=== PATIENT | female | born 1950 | race Caucasian/White ===

== ENCOUNTER 2022-06-24 07:17 | Outpatient (REF) | payer MEDICARE, SELFPAY ==
--- NOTE | ~2022-06-24 | MR_ITS ---
EXAMINATION: MR ABDOMEN WITHOUT CONTRAST CLINICAL INFORMATION: Follow up pancreatic lesions and dilated common bile duct. COMPARISON: None available. TECHNIQUE: MR abdomen is performed without gadolinium contrast. MRCP sequences were also performed. FINDINGS: LUNG BASES: The visualized lung bases are unremarkable. LIVER, GALLBLADDER, AND BILIARY TREE: The liver is normal in size, shape and signal. There is a small cyst high in the dome of the liver measuring 7 mm. No other focal liver lesion. No intrahepatic biliary duct dilatation. The common bile duct is slightly dilated measuring 1 cm. No common bile duct stone is seen. Gallbladder is not seen and has presumably been removed. PANCREAS: The pancreas is normal appearing. No focal lesion. The main pancreatic duct is normal. SPLEEN: Unremarkable. ADRENAL GLANDS: Unremarkable. KIDNEYS AND URETERS: The kidneys are normal in size and shape. No hydronephrosis. No perinephric stranding. Small bilateral renal cysts. No imaging followup recommended. GASTROINTESTINAL TRACT: No bowel obstruction. No ascites or fluid collection. ABDOMINAL WALL: No significant hernia is appreciated. LYMPH NODES: No lymphadenopathy. VASCULAR: Unremarkable. OSSEOUS STRUCTURES: Marrow signal normal. MR/MR abdomen wo con IMPRESSION: Mild dilatation of the common bile duct measuring 1 cm. No common bile duct stone seen. Gallbladder not seen and has presumably been removed. Small liver cyst. Normal-appearing pancreas.
== END 2022-06-24 07:18 | disposition home or self-care (01) ==
LOC: HO.MRI 07:17
PROVIDERS: PCP Internal Medicine; Visit Provider Internal Medicine
DX: K86.9 Disease of pancreas, unspecified (principal); R93.2 Abnormal findings on diagnostic imaging of liver and biliary tract
CPT/HCPCS: 74181

== ENCOUNTER 2022-10-25 08:59 | Outpatient (REF) | payer MEDICARE, SELFPAY ==
--- NOTE | ~2022-10-25 | MR_ITS ---
EXAMINATION: MR ABDOMEN WITHOUT AND WITH CONTRAST CLINICAL INFORMATION: Congenital malformation of pancreas/pancreatic duct COMPARISON: Previous MRI of the abdomen June 2022 TECHNIQUE: MR abdomen was performed without and with use of 4.5 mL intravenous Gadavist gadolinium contrast. Postcontrast images are performed in multiphase dynamic sequences. Imaging was performed in 3 planes. MRCP sequences were also performed. FINDINGS: LUNG BASES: The visualized lung bases are unremarkable. LIVER, GALLBLADDER, AND BILIARY TREE: The liver is normal in size, smooth in contour, and normal in signal. There is a 5 mm cyst high in the dome of the right lobe of the liver. No other focal liver lesion. No intrahepatic biliary duct dilatation. The common bile duct is slightly dilated measuring 1 cm. This is dilated to the head down to the head of the pancreas and tapers smoothly. No filling defect is seen. The gallbladder is not seen and has presumably been removed. PANCREAS: The pancreas is size and signal. The pancreas enhances normally. No there may be a tiny cyst in the neck of the pancreas measuring 2 mm for example axial image 40 post contrast and axial T2 image 19 series 5. The main pancreatic duct is normal and does not appear dilated. SPLEEN: Normal. ADRENAL GLANDS: Normal. KIDNEYS AND URETERS: The kidneys are normal in size, shape, and enhance symmetrically. No hydronephrosis. No perinephric stranding. Bilateral renal cysts. No imaging follow-up recommended. GASTROINTESTINAL TRACT: There is question of wall thickening and enhancement of the cecum. This is not completely imaged. Clinical correlation recommended. This could be better evaluated with CT of the abdomen and pelvis if clinically indicated. No ascites or fluid collection. ABDOMINAL WALL: No significant hernia is appreciated. LYMPH NODES: No lymphadenopathy. VASCULAR: Unremarkable. OSSEOUS STRUCTURES: Marrow signal normal. Degenerative changes of the spine. MR/MR abdomen wo/w con IMPRESSION: Normal appearing main pancreatic duct. Question small 2 mm cyst in the neck of the pancreas. Pancreas is otherwise normal. Stable mild dilatation of the common bile duct measuring 1 cm. No common bile duct stone seen. Gallbladder not seen and has presumably been removed. Question wall thickening and enhancement of the cecum. This is only partially visualized. Clinical correlation recommended. This could be better evaluated with CT of the abdomen and pelvis if clinically indicated. Findings will be communicated by the [place] work flow bus analyst..
[2022-10-25] MEDS: gadobutroL 7.5 ML VIAL IVPUSH (09:56)
== END 2022-10-25 09:00 | disposition home or self-care (01) ==
LOC: HO.MRI 08:59
PROVIDERS: PCP Internal Medicine; Visit Provider Internal Medicine Gastroenterology
DX: Q45.3 Other congenital malformations of pancreas and pancreatic duct (principal)
CPT/HCPCS: 74183; A9585

== ENCOUNTER 2022-10-29 07:55 | Day surgery (SDC) | payer MEDICARE, SELFPAY ==
--- NOTE | 2022-10-29 07:44 | HO.ANESPROP2 ---
HPI - Anesthesia Eval Consult details Narrative: egd,colonoscopy [facility] Past Medical History Medical History Atrial enlargement, left Breast tumor First-degree atrioventricular block Heart murmur Left ankle pain Left foot pain Pain syndrome, chronic Reflex sympathetic dystrophy Seasonal allergies Squamous cell carcinoma, face Family History Family history of problems with anesthesia: No Surgical History Surgical History H/O hemorrhoidectomy History of ERCP Hx of cholecystectomy Previous back surgery Previous section History of Problems with Anesthesia: No Social History Social History Patient Tobacco Use Status: Never used Tobacco Use of substances other than those prescribed or required for medical reasons: Yes Are you DNR?: No Advance Directives: No Advance Directives Information Provided: Yes Recently lost weight without trying: No Nutrition Risks: No Nutritional Risk Patient : No : No Poor oral hygiene: No Meds Allergies Allergy/AdvReac Type Severity Reaction Status Date / Time Beta-Blockers Allergy Unknown Verified 10/28/22 06:25 (Beta-Adrenergic Bloc Penicillins Allergy Unknown Verified 10/28/22 06:25 Home Medications Medication Instructions Recorded Confirmed Last Taken Type alirocumab 75 mg/mL subcutaneous 75 mg subcut Q2W 10/28/22 10/28/22 Unknown History pen injector (Praluent Pen) cetirizine 10 mg capsule (Zyrtec) mg 10/28/22 Unknown History dicyclomine 10 mg capsule 10 mg PO BID 10/28/22 10/28/22 Unknown History esomeprazole magnesium 40 mg 40 mg PO DAILY 10/28/22 10/28/22 Unknown History capsule,delayed release (Nexium) nortriptyline 50 mg capsule PO 10/28/22 Unknown History potassium chloride 20 mEq 20 meq PO DAILY 10/28/22 10/28/22 Unknown History tablet,extended release topiramate 200 mg tablet PO 10/28/22 Unknown History ubidecarenone-omega 3-vit E 50 cap PO 10/28/22 Unknown History mg-300 (180-120)mg-30 unit capsule Exam Exam Date and Time: October 29, 2022 0744 Airway Mallampati Class: II TM Dist: >3cm Neck ROM: Limited Heart: rrr Lungs: cta Assessment and Plan Assessment Anesthesia Assessment: Anesthesia Plan Discussed and Chart Reviewed Final Anesthetic Review Family History of Problems with Anesthesia: No History of Problems with Anesthesia: No NPO: Yes ASA Class: III Final Preanesthetic Review: No Changes in Pt Med Stat, Meds/Allgs Chart Reviewed, Consent Obtained/Reviewed and Anes Risks/Benef Reviewed Patient Risk: Intermediate Procedure Risk: Intermediate Anesthetic Plan Anesthetic Plan: MAC: and Agree w/ Assess. and Plan Disposition: Standard PACU
[2022-10-29 08:16] VITALS: BP 174/90; PULSE 101; RESP 17; TEMP 36.4; O2SAT 100
--- NOTE | 2022-10-29 09:23 | MHC.SHP ---
Pre-Procedural Eval Section A Date of Service: 10/29/22 Section B Chief Complaint: Constipation, unspecified,Unspecified abdominal Details of Present Illness: see H&P no changes Relevant Family History (Specify if Yes): No Relevant Social History: None Present Medications: see Short Stay Collaborative assessment Medical History: No relevant PMH History of Previous Operations: No relevant previous surgery Allergies: Allergies Allergy/AdvReac Type Severity Reaction Status Date / Time Beta-Blockers Allergy Unknown Verified 10/28/22 06:25 (Beta-Adrenergic Bloc Penicillins Allergy Unknown Verified 10/28/22 06:25 Review of Systems Sugical H&P ROS: Negative: Constitution, Cardiovascular, Respiratory, Neurological, Psychiatric, Hem-Onc, Allergic/Immunologic, Gastrointestinal, Genitourinary, Musculoskeletal, Integumentary, Endocrine and Eyes/Ears/Nose/Throat Exam Surgical H&P Exam: Normal: HEENT, Normal: Heart, Normal: Lungs, Normal: Extremities, Normal: Abdomen, Normal: Skin and Normal: Neurological Plan Diagnosis/Plan: Unchanged I have reviewed the history and physical and performed a pertinent physical examination on my patient. No changes have occurred unless specified. Time Spent With Patient Time: Total time managing care of this patient today ____ minutes.
[2022-10-29 09:24] VITALS: BMI 17.3
--- NOTE | 2022-10-29 11:00 | P.BOP_ITS ---
Brief Operative Note Date of Service: 10/29/22 Pre-op diagnosis: constipation abd pain Post-op diagnosis: same Procedure: egd colonoscopy Surgeon: Franco Michael Was an S[employer] Loader used for this Procedure?: No Estimated blood loss (mL): 5 Pathology: other Condition: stable Disposition: PACU
[2022-10-29 11:05] VITALS: BP 121/70; PULSE 69; RESP 16; TEMP 36.1; O2SAT 100
[2022-10-29 11:19] VITALS: BP 140/76; PULSE 67; RESP 16; TEMP 36.1; O2SAT 100
--- NOTE | 2022-10-29 12:29 | OP_ITS ---
DATE OF SERVICE: 10/29/2022 SURGEON: Franco Michael MD PREOPERATIVE DIAGNOSIS: POSTOPERATIVE DIAGNOSIS: PROCEDURE PERFORMED: Upper endoscopy with biopsy, colonoscopy to the terminal ileum with biopsy, snare polypectomy, and injection of Antonia ink. ESTIMATED BLOOD LOSS: COMPLICATIONS: ANESTHESIA: Monitored anesthesia care. ASSISTANTS: SPECIMENS: DESCRIPTION OF PROCEDURE: A history and physical was performed. The risks and benefits of the procedure were explained to the patient. Informed consent was obtained. The patient was placed in the left lateral decubitus position. The Olympus video gastroscope was introduced into the esophagus, stomach, and duodenum. Examination was performed. The scope was removed. She was repositioned for colonoscopy. A digital rectal exam was performed and was found to be normal. The Olympus pediatric video colonoscope was introduced into the rectum and advanced to the cecum. The cecum was identified by transillumination, palpation, and identification of ileocecal valve. Examination was performed. The scope was removed. She tolerated the procedure well and was returned to the recovery area in stable condition. FINDINGS: Upper endoscopy: 1. Esophagus: The esophagus was normal. The EG junction was slightly irregular. This was biopsied. 2. Stomach: The stomach showed several benign-appearing gastric polyps in the body and fundus measuring less than 5 mm. Two of these were biopsied. Antral biopsies were obtained to rule out H pylori. 3. Duodenum: The bulb and second portion were normal. Biopsies were obtained from the second portion. Colonoscopy: The terminal ileum was normal. Multiple colonic polyp polyps were present and removed using a combination of snare cautery and cauterization. These were located in the right colon, proximal transverse colon at 15 cm, and biopsies were taken from the sigmoid. The second polyp in the right colon was large and flat, measuring approximately 3 x 2 cm traversing a fold and was piecemeal resected and cauterized. The site was marked with Antonia ink for facilitation of followup colonoscopies. The first right colon polyp measured approximately 10 mm, the proximal transverse colon polyp also measured 10 mm to 12 mm, and the polyp in the sigmoid colon measured 10 mm. Retroflexed examination showed some internal hemorrhoids. IMPRESSION: 1. Gastric polyps. 2. Colon polyps. RECOMMENDATION: Follow up the biopsy results. MD JULIOCESAR Moon/TAI / [id number]
== END 2022-10-29 12:06 | disposition home or self-care (01) ==
PROVIDERS: PCP Internal Medicine; Visit Provider Internal Medicine Gastroenterology
PROC: (CPT 45385; principal; 2022-10-29 09:00)
DX: R10.84 Generalized abdominal pain (principal); K58.1 Irritable bowel syndrome with constipation; D12.2 Benign neoplasm of ascending colon; D12.3 Benign neoplasm of transverse colon; D12.7 Benign neoplasm of rectosigmoid junction; K64.8 Other hemorrhoids; K31.9 Disease of stomach and duodenum, unspecified; K31.7 Polyp of stomach and duodenum; G90.522 Complex regional pain syndrome I of left lower limb; I51.7 Cardiomegaly; I44.0 Atrioventricular block, first degree; E78.5 Hyperlipidemia, unspecified; J30.2 Other seasonal allergic rhinitis; Q45.3 Other congenital malformations of pancreas and pancreatic duct; Z88.0 Allergy status to penicillin; Z79.899 Other long term (current) drug therapy; Z88.8 Allergy status to other drugs, medicaments and biological substances; Z98.890 Other specified postprocedural states
CPT/HCPCS: 45385; 45380; 45381; 43239; 88305; 88342; J2250

== ENCOUNTER 2022-11-05 10:32 | Outpatient (REF) | payer MEDICARE, SELFPAY ==
--- NOTE | ~2022-11-05 | XR_ITS ---
EXAMINATION: XR SINUSES CLINICAL INFORMATION: Sinusitis COMPARISON: None available. TECHNIQUE: 4 views of the paranasal sinuses. FINDINGS: Paranasal sinuses appear clear without air-fluid levels or significant mucosal thickening. No fractures are identified. No radiodense foreign bodies. XR/XR sinus min 3V IMPRESSION: No evidence of acute or chronic sinusitis.
== END 2022-11-05 10:33 | disposition home or self-care (01) ==
LOC: HO.XRAY 10:32
PROVIDERS: Visit Provider Otolaryngology
DX: J32.9 Chronic sinusitis, unspecified (principal)
CPT/HCPCS: 70220

== ENCOUNTER 2023-02-18 15:00 | Outpatient (REF) | payer MEDICARE, SELFPAY ==
--- NOTE | ~2023-02-18 | XR_ITS ---
EXAMINATION: XR FINGER, LEFT CLINICAL INFORMATION: Which splinter in finger left. COMPARISON: None available. TECHNIQUE: 3 views of the second finger including AP view of the hand FINDINGS: No radiopaque foreign body detected. No air/gas in soft tissues. No irregularity of the soft tissues. The bone and joints of the second finger/digit are normal. Additional findings: The AP projection of the hand there is a ununited fracture the distal tuft of the distal phalanx of the thumb tear Remaining bones joints and soft tissues unremarkable. XR/XR finger LT min 2V IMPRESSION: 1. No radiopaque foreign body detected. No fracture of the second finger 2. Ununited fracture of the distal tuft of the distal phalanx of the thumb. This may be chronic or subacute unlikely acute.
== END 2023-02-18 15:01 | disposition home or self-care (01) ==
LOC: HO.XRAY 15:00
PROVIDERS: PCP Internal Medicine; Visit Provider Nurse Practitioner Family
DX: S60.451A Superficial foreign body of left index finger, initial encounter (principal)
CPT/HCPCS: 73140

== ENCOUNTER 2023-04-18 08:13 | Day surgery (SDC) | payer MEDICARE, SELFPAY ==
[2023-04-16 10:48] VITALS: BMI 18.0
--- NOTE | 2023-04-17 10:22 | HO.ANESPROP2 ---
Documented by User: Bianca Buckley NP 04/17/23 10:24 HPI - Anesthesia Eval Consult details Narrative: 72yo F for Colonoscopy s/p colo 10/2022 with TIVA (Medically cleared prior) PMFSH Past Medical History Medical History Squamous cell carcinoma, face Left ankle pain Left foot pain Breast tumor Seasonal allergies Heart murmur First-degree atrioventricular block Atrial enlargement, left Pain syndrome, chronic Reflex sympathetic dystrophy Family History Family history of problems with anesthesia: No Surgical History Surgical History (Updated 04/16/23 @ 10:48 by Crystal Blevins RN) Hx of foot surgery Hx of sinus surgery History of esophagogastroduodenoscopy (EGD) Hx of cholecystectomy History of ERCP H/O hemorrhoidectomy Previous back surgery Previous section History of Problems with Anesthesia: No Social History Social History Patient Tobacco Use Status: Never used Tobacco Use of substances other than those prescribed or required for medical reasons: Yes Substance Use Frequency: Daily Are you DNR?: No Advance Directives: No Advance Directives Information Provided: Yes Meds Allergies Allergy/AdvReac Type Severity Reaction Status Date / Time Beta-Blockers Allergy Unknown Verified 04/18/23 08:25 (Beta-Adrenergic Bloc Penicillins Allergy Unknown Verified 04/18/23 08:25 Home Medications Medication Instructions Recorded Confirmed Last Taken Type alirocumab 75 mg/mL subcutaneous 75 mg subcut Q2W 10/28/22 04/16/23 Unknown History pen injector (Praluent Pen) cetirizine 10 mg capsule (Zyrtec) 10 mg PO DAILY 10/28/22 04/18/23 04/18/23 History dicyclomine 10 mg capsule 20 mg PO TID 10/28/22 04/16/23 Unknown History esomeprazole magnesium 40 mg 40 mg PO DAILY 10/28/22 04/18/23 04/18/23 History capsule,delayed release (Nexium) nortriptyline 50 mg capsule 50 mg PO BID 10/28/22 04/16/23 Unknown History potassium chloride 20 mEq 20 meq PO DAILY 10/28/22 04/16/23 Unknown History tablet,extended release topiramate 200 mg tablet 200 mg PO TID 10/28/22 04/18/23 04/18/23 History ubidecarenone-omega 3-vit E 50 1 cap PO DAILY 10/28/22 04/18/23 04/17/23 History mg-300 (180-120)mg-30 unit capsule Exam Height,Weight and Vital Signs: Height 4 ft 10 in Weight 39.009 kg Assessment and Plan Assessment Anesthesia Assessment: Chart Reviewed Final Anesthetic Review Family History of Problems with Anesthesia: No History of Problems with Anesthesia: No Documented by User: Miguel Tesfaye MD 04/18/23 09:12 [facility] Past Medical History Medical History Squamous cell carcinoma, face Left ankle pain Left foot pain Breast tumor Seasonal allergies Heart murmur First-degree atrioventricular block Atrial enlargement, left Pain syndrome, chronic Reflex sympathetic dystrophy Surgical History Surgical History (Updated 04/16/23 @ 10:48 by Crystal Blevins RN) Hx of foot surgery Hx of sinus surgery History of esophagogastroduodenoscopy (EGD) Hx of cholecystectomy History of ERCP H/O hemorrhoidectomy Previous back surgery Previous section Social History Social History Patient Tobacco Use Status: Never used Tobacco Use of substances other than those prescribed or required for medical reasons: Yes Substance Use Frequency: Daily Are you DNR?: No Advance Directives: No Advance Directives Information Provided: Yes Meds Allergies Allergy/AdvReac Type Severity Reaction Status Date / Time Beta-Blockers Allergy Unknown Verified 04/18/23 08:25 (Beta-Adrenergic Bloc Penicillins Allergy Unknown Verified 04/18/23 08:25 Home Medications Medication Instructions Recorded Confirmed Last Taken Type alirocumab 75 mg/mL subcutaneous 75 mg subcut Q2W 10/28/22 04/16/23 Unknown History pen injector (Praluent Pen) cetirizine 10 mg capsule (Zyrtec) 10 mg PO DAILY 10/28/22 04/18/23 04/18/23 History dicyclomine 10 mg capsule 20 mg PO TID 10/28/22 04/16/23 Unknown History esomeprazole magnesium 40 mg 40 mg PO DAILY 10/28/22 04/18/23 04/18/23 History capsule,delayed release (Nexium) nortriptyline 50 mg capsule 50 mg PO BID 10/28/22 04/16/23 Unknown History potassium chloride 20 mEq 20 meq PO DAILY 10/28/22 04/16/23 Unknown History tablet,extended release topiramate 200 mg tablet 200 mg PO TID 10/28/22 04/18/23 04/18/23 History ubidecarenone-omega 3-vit E 50 1 cap PO DAILY 10/28/22 04/18/23 04/17/23 History mg-300 (180-120)mg-30 unit capsule Exam Airway Mallampati Class: II Neck ROM: Full Assessment and Plan Assessment Anesthesia Assessment: Anesthesia Plan Discussed Final Anesthetic Review NPO: Yes ASA Class: II Final Preanesthetic Review: No Changes in Pt Med Stat, Meds/Allgs Chart Reviewed, Consent Obtained/Reviewed and Anes Risks/Benef Reviewed Patient Risk: Low Procedure Risk: Low Anesthetic Plan Anesthetic Plan: TIVA Disposition: Standard PACU
[2023-04-18 08:17] VITALS: BMI 17.3
[2023-04-18] MEDS: Lactated Ringers 1,000 ML 100 ML IVCONT (08:37)
[2023-04-18 08:38] VITALS: BP 169/91; PULSE 101; RESP 16; TEMP 36.3; O2SAT 100
--- NOTE | 2023-04-18 09:01 | MHC.SHP ---
Pre-Procedural Eval Section A - 24 Hr Update-Section A only Date of Service: 04/18/23 Section B - Complete if H&P > 30 days Chief Complaint: Polyp of colon Details of Present Illness: see h&p and addendum Relevant Family History (Specify if Yes): No Relevant Social History: None Present Medications: see Short Stay Collaborative assessment Medical History: No relevant PMH History of Previous Operations: No relevant previous surgery Allergies: Allergies Allergy/AdvReac Type Severity Reaction Status Date / Time Beta-Blockers Allergy Unknown Verified 04/18/23 08:25 (Beta-Adrenergic Bloc Penicillins Allergy Unknown Verified 04/18/23 08:25 Review of Systems Sugical H&P ROS: Negative: Constitution, Cardiovascular, Respiratory, Neurological, Psychiatric, Hem-Onc, Allergic/Immunologic, Gastrointestinal, Genitourinary, Musculoskeletal, Integumentary, Endocrine and Eyes/Ears/Nose/Throat Exam Surgical H&P Exam: Normal: HEENT, Normal: Heart, Normal: Lungs, Normal: Extremities, Normal: Abdomen, Normal: Skin and Normal: Neurological Plan Diagnosis/Plan: Unchanged I have reviewed the history and physical and performed a pertinent physical examination on my patient. No changes have occurred unless specified. Time Spent With Patient Time: Total time managing care of this patient today ____ minutes.
[2023-04-18 10:18] VITALS: BP 122/65; PULSE 94; RESP 16; TEMP 36.1; O2SAT 97
[2023-04-18 10:33] VITALS: BP 146/83; PULSE 88; RESP 16; O2SAT 100
[2023-04-18 10:48] VITALS: BP 143/78; PULSE 85; TEMP 36.2; O2SAT 100
--- NOTE | 2023-04-18 10:55 | OP_ITS ---
DATE OF SERVICE: 04/18/2023 SURGEON: Franco Michael MD INDICATIONS: Colon cancer screening and prior history of large colon polyp requiring piecemeal resection and Antonia ink marking. PREOPERATIVE DIAGNOSIS: POSTOPERATIVE DIAGNOSIS: PROCEDURE PERFORMED: Colonoscopy to the terminal ileum with snare polypectomy and endoscopic clip placement. ESTIMATED BLOOD LOSS: COMPLICATIONS: ANESTHESIA: Monitored anesthesia care. ASSISTANTS: SPECIMENS: DESCRIPTION OF PROCEDURE: History and physical performed. The risks and benefits of the procedure were explained to the patient. Informed consent was obtained. The patient was placed in the left lateral decubitus position. A digital rectal exam was performed and was found to be normal. The Olympus pediatric video colonoscope was introduced into the rectum and advanced to the cecum. The cecum was identified by transillumination, palpation, and identification of ileocecal valve. Examination was performed. The scope was removed. She tolerated the procedure well and was taken to recovery area in stable condition. FINDINGS: The terminal ileum was examined and appeared normal. The visualized colonic mucosa was normal. The quality of prep was good. The previously identified large colon polyp in the right colon, which had been marked with Antonia ink was identified. There was residual polypoid tissue, which was piecemeal resected and cauterized. A single clip was placed to close the defect in the mucosa. The 2nd polyp just above this measuring approximately 10 mm was removed with a snare and recovered via suction. No other polyps were identified. Retroflexed examination showed moderate-sized internal hemorrhoids. IMPRESSION: Colon polyps. RECOMMENDATION: Follow up the biopsy results. MD JULIOCESAR Moon/MODL / [id number]
== END 2023-04-18 11:10 | disposition home or self-care (01) ==
PROVIDERS: PCP Internal Medicine; Visit Provider Internal Medicine Gastroenterology
PROC: 0DJD8ZZ Inspection of Lower Intestinal Tract, Via Natural or Artificial Opening Endoscopic (ICD-10-PCS; CPT 45378; principal; 2023-04-18 09:00)
DX: Z12.11 Encounter for screening for malignant neoplasm of colon (principal); D12.6 Benign neoplasm of colon, unspecified; K64.8 Other hemorrhoids; Z86.010 Personal history of colon polyps
CPT/HCPCS: 45385; 88305; J2704

== ENCOUNTER 2023-07-01 12:37 | Outpatient (REF) | payer MEDICARE, SELFPAY ==
[2023-07-01 14:08] LABS: Blood Urea Nitrogen 13 mg/dL (9-16); Estimated Glomerular Filt Rate 52
== END 2023-07-01 12:38 | disposition home or self-care (01) ==
LOC: HO.LAB 12:37
PROVIDERS: PCP Internal Medicine; Visit Provider Internal Medicine Gastroenterology
DX: R10.84 Generalized abdominal pain (principal)
CPT/HCPCS: 36415; 82565; 84520

== ENCOUNTER 2023-07-07 13:27 | Outpatient (REF) | payer MEDICARE, SELFPAY ==
--- NOTE | ~2023-07-07 | CT_ITS ---
EXAMINATION: CT ABDOMEN AND PELVIS WITH CONTRAST CLINICAL INFORMATION: Abdominal pain (attention to pancreas) COMPARISON: MRI scan of the abdomen dated 10/25/2022 . Images from the MRI scan dated 06/24/2022 and do not display appropriately and cannot be compared. TECHNIQUE: Multidetector CT volumetric acquisition of the abdomen and pelvis was performed after the administration of 675 mL of by mouth contrast (patient unable to complete contrast) and 85 mL of intravenous Omnipaque 350. The data set was reformatted in the sagittal and coronal planes and reviewed on an independent workstation. This CT examination was performed using dose optimization techniques as appropriate, variously including the following: *Automated exposure control *Adjustment of mA and/or kV according to patient size (this includes techniques or standardized protocols for targeted exams where dose is matched to indication/reason for exam; i.e. extremities or head) *Use of iterative reconstruction technique DLP: 170.3 mGy-cm. FINDINGS: LOWER CHEST: Included lung bases unremarkable. LIVER, GALLBLADDER, BILIARY TREE: Liver normal size and diffusely lower in attenuation compared to the spleen, consistent with hepatic steatosis.. There is a 0.8 cm cyst in the central segment 7 (series 4, image 52). No suspicious focal cystic or solid mass. Hepatic and portal veins patent. Gallbladder is surgically absent. There is dilatation of the intra and extrahepatic bile ducts with the common bile duct measuring up to 1 cm in diameter, unchanged from prior exam. PANCREAS: There is a 0.6 cm low-attenuation mass in the pancreatic neck (series 4, image 167), previously measuring 0.4 cm (10/25/2022). No additional pancreatic mass No ductal dilatation or peripancreatic stranding/edema. SPLEEN: Normal size and appearance. Splenic vein patent. ADRENAL GLANDS AND KIDNEYS: Right adrenal gland normal. 0.7 cm left adrenal nodule again seen, unchanged, consistent with a benign adenoma. Kidneys bilaterally symmetric in size and function. There are several scattered subcentimeter sized low-attenuation masses in the kidneys bilaterally, too small to characterize, but similar to the prior MRI scan and most consistent with scattered cysts, largest of which is in the mid right kidney, measuring 0.8 cm. No imaging follow-up is warranted. No suspicious focal mass, hydronephrosis, nephrolithiasis or perinephric stranding. URETERS AND BLADDER: Ureters decompressed and within normal limits. Bladder partially distended and within normal limits. PELVIC ORGANS: Unremarkable. GASTROINTESTINAL TRACT: The orally ingested contrast is seen extending from the stomach down into the cecum. Small bowel loops appear decompressed and unremarkable. In the proximal and distal transverse colon, there are decompressed segments, likely related to muscle spasm. However, the proximal decompressed segment near the hepatic flexure shows equivocal associated circumferential wall thickening and enhancement, raising the suspicion of possible underlying neoplasm. Appendix in right lower quadrant normal. LYMPHOVASCULAR STRUCTURES: Abdominal aorta normal in caliber. No periaortic collections. No abdominal or pelvic adenopathy or free fluid collection. BONES: There is grade 1 anterolisthesis of L3 on L4, likely related to degenerative ligamentous laxity. There is associated moderate disc space narrowing at L3-L4. There is also moderate disc space narrowing at L4-L5 with diffuse posterior disc bulge projecting into the spinal canal and neural foramina. There is severe degenerative disc disease at the lumbosacral junction with small posterior disc osteophyte complex noted. Mild facet arthropathy is seen in the mid and lower lumbar spine. Mild vertebral spondylosis seen in the lower thoracic spine. CT/CT abdomen pelvis w IV con IMPRESSION: * No acute intra-abdominal or pelvic findings seen. * Equivocal circumferential wall thickening and enhancement seen in the proximal transverse colon near the hepatic flexure. Findings may be related to focal colonic spasm, though subtle underlying neoplasm cannot be excluded. Further assessment with barium enema or colonoscopy is recommended. * Hepatic steatosis. * Stable intra and extrahepatic biliary dilatation, likely related to the patient's postcholecystectomy state. * Small 0.6 cm low-attenuation mass in the pancreatic neck, minimally increased in size from prior exam. Finding may represent a pancreatic cyst or cystic neoplasm, such as a intraductal papillary mucinous neoplasm (IPMN). Given the slight interval increase in size, close clinical correlation is requested to assess whether further evaluation with endoscopic ultrasound would be clinically appropriate versus continued imaging with MRI scanning with and without contrast/MRCP in 6-12 months. * Stable small left adrenal adenoma. * Scattered bilateral renal masses, too small to characterize, but similar to prior MRI scan, most consistent with small cysts. No further imaging follow-up is recommended. * Multilevel degenerative changes in the spine.
[2023-07-07] MEDS: Barium Sulfate Oral (Vanilla) 450 ML ORAL.SUSP 675 ML PO (15:40)
[2023-07-07] MEDS: iohexoL 350 MG/ML 100 ML INFUS..BTL 85 ML IV (15:40)
== END 2023-07-07 13:28 | disposition home or self-care (01) ==
LOC: HO.CT 13:27
PROVIDERS: PCP Internal Medicine; Visit Provider Internal Medicine Gastroenterology
DX: R10.84 Generalized abdominal pain (principal)
CPT/HCPCS: 74177; Q9967

== ENCOUNTER 2023-07-29 10:57 | Outpatient (REF) | payer MEDICARE, SELFPAY ==
[2023-07-29 13:58] LABS: Leukocytes Stool Qualitative NEGATIVE (NEGATIVE)
[2023-07-29 14:35] LABS: Adenovirus F 40/41 Not Detected (Not Detect.); Astrovirus Not Detected (Not Detect.); Campylobacter Not Detected (Not Detect.); Cryptosporidium Not Detected (Not Detect.); Cyclospora cayetanensis Not Detected (Not Detect.); E. coli EAEC Not Detected (Not Detect.); E. coli EPEC Not Detected (Not Detect.); E. coli ETEC Not Detected (Not Detect.); E. coli STEC Not Detected (Not Detect.); Entamoeba histolytica Not Detected (Not Detect.); Giardia lamblia Not Detected (Not Detect.); Plesiomonas shigelloides Not Detected (Not Detect.); Rotavirus A Not Detected (Not Detect.); Salmonella Not Detected (Not Detect.); Sapovirus Not Detected (Not Detect.); Shigella sp./EIEC Not Detected (Not Detect.); Vibrio Not Detected (Not Detect.); Vibrio Cholerae Not Detected (Not Detect.); Yersinia enterocolitica Not Detected (Not Detect.)
[2023-07-31 07:52] LABS: Norovirus Stool PCR NOT DETECTED
== END 2023-07-29 10:58 | disposition home or self-care (01) ==
LOC: HO.LNP 10:57
PROVIDERS: Visit Provider Internal Medicine Gastroenterology
DX: R19.7 Diarrhea, unspecified (principal)
CPT/HCPCS: 87177; 87209; 87329; 87507; 89055

== ENCOUNTER 2023-08-25 11:47 | Outpatient (REF) | payer MEDICARE, SELFPAY | END 2023-08-25 11:48 | disposition home or self-care (01) | LOC: HO.LNP 11:47 | PROVIDERS: Visit Provider Internal Medicine Gastroenterology | DX: Z13.89 Encounter for screening for other disorder (principal) | CPT/HCPCS: 87177; 87209 ==

== ENCOUNTER 2023-08-26 11:46 | Outpatient (REF) | payer MEDICARE, SELFPAY | END 2023-08-26 11:47 | disposition home or self-care (01) | LOC: HO.LNP 11:46 | PROVIDERS: Visit Provider Internal Medicine Gastroenterology | DX: Z13.89 Encounter for screening for other disorder (principal) | CPT/HCPCS: 87177; 87209 ==

== ENCOUNTER 2023-08-27 11:30 | Outpatient (REF) | payer MEDICARE, SELFPAY | END 2023-08-27 11:31 | disposition home or self-care (01) | LOC: HO.LNP 11:30 | PROVIDERS: Visit Provider Internal Medicine Gastroenterology | DX: Z13.89 Encounter for screening for other disorder (principal) | CPT/HCPCS: 87177; 87209 ==

== ENCOUNTER 2023-08-29 08:00 | Outpatient (REF) | payer MEDICARE, SELFPAY | END 2023-08-29 08:01 | disposition home or self-care (01) | LOC: HO.LNP 08:00 | PROVIDERS: Visit Provider Internal Medicine Gastroenterology | DX: R19.5 Other fecal abnormalities (principal) | CPT/HCPCS: 87177; 87209 ==

== ENCOUNTER 2023-08-30 09:00 | Outpatient (REF) | payer MEDICARE, SELFPAY | END 2023-08-30 09:01 | disposition home or self-care (01) | LOC: HO.LNP 09:00 | PROVIDERS: Visit Provider Internal Medicine Gastroenterology | DX: R19.5 Other fecal abnormalities (principal) | CPT/HCPCS: 87177; 87209 ==

== ENCOUNTER 2023-08-31 08:45 | Outpatient (REF) | payer MEDICARE, SELFPAY | END 2023-08-31 08:46 | disposition home or self-care (01) | LOC: HO.LNP 08:45 | PROVIDERS: Visit Provider Internal Medicine Gastroenterology | DX: R19.5 Other fecal abnormalities (principal) | CPT/HCPCS: 87177; 87209 ==

== ENCOUNTER 2023-12-26 09:06 | Outpatient (REF) | payer MEDICARE, SELFPAY ==
--- NOTE | ~2023-12-26 | MR_ITS ---
EXAMINATION: MR ABDOMEN WITHOUT AND WITH CONTRAST CLINICAL INFORMATION: Pancreatic cyst COMPARISON: MRI dated October 25, 2022. Correlated to CT dated July 07, 2023. TECHNIQUE: MR abdomen was performed without and with use of 4.0 mL intravenous Gadavist gadolinium contrast without reported immediate complications. Postcontrast images are performed in multiphase dynamic sequences. Imaging was performed in 3 planes. FINDINGS: Submitted for interpretation on January 21, 2024. LIVER, GALLBLADDER, AND BILIARY TREE: Liver measures 15 cm. There is a 1 cm nonenhancing fluid signal characteristic lesion in the dome right hepatic lobe. 1 mm nonenhancing fluid signal characteristic lesion, right hepatic lobe. Main portal vein and hepatic veins are patent. Status post cholecystectomy. Common bile duct measures 1.2 cm with a focal narrowing at the distal segment just medial to the second portion of the duodenum. PANCREAS: There is a cluster of 4 mm nonenhancing fluid signal characteristic lesions within the head of the pancreas. There is a 3 mm nonenhancing fluid signal characteristic lesion in the uncinate process. There is a 4 mm nonenhancing fluid signal characteristic lesion in the body of the pancreas adjacent to the main pancreatic duct. There is a 1 mm nonenhancing fluid signal structures lesions in the tail of the pancreas. The main pancreatic duct measures 3 mm in maximum diameter. No peripancreatic fluid collections. Splenic vessels are patent. SPLEEN: Measures 7 cm. No focal mass. ADRENAL GLANDS: 7 mm nodule, left adrenal gland, with the drop-off signal from in phase to out of phase sequence. No nodular lesions in the right adrenal gland. KIDNEYS AND URETERS: Multifocal different sizes scattered fluid signal characteristic nonenhancing lesions throughout the renal parenchyma, bilaterally. No gross renal mass. No hydronephrosis. GASTROINTESTINAL TRACT: Abundant stool. No intestinal obstruction pattern. No ascites. ABDOMINAL WALL: No gross hernia. LYMPH NODES: No lymphadenopathy. VASCULAR: No aneurysm or dissection, abdominal aorta. Tortuosity of the infrarenal abdominal aorta. OSSEOUS STRUCTURES: Multilevel spondylosis resulting in grade 1 anterolisthesis L3-4 causing central spinal canal stenosis compressing the neural elements. Spondylosis resulting in grade 1 anterolisthesis L4-5 and L5-S1 resulting in central spinal canal and bilateral neuroforamina stenosis. MR/MR abdomen wo/w con IMPRESSION: Nonspecific multiple nonenhancing pancreatic cysts. Focal stenosis distal common bile duct resulting in dilatation. Bilateral renal cysts. Hepatic cyst. Lipid rich adenoma, left adrenal gland. Multilevel spondylosis resulting in grade 1 anterolisthesis L3-4 and to a lesser extent L4-5 and L5-S1 resulting in central spinal canal stenosis. Electronically signed by: Chad Ledezma MD 01/21/2024 12:07 PM DEANDRA
[2023-12-26] MEDS: gadobutroL 7.5 ML VIAL IVPUSH (10:30)
== END 2023-12-26 09:07 | disposition home or self-care (01) ==
LOC: HO.MRI 09:06
PROVIDERS: Visit Provider Internal Medicine Gastroenterology
DX: K86.2 Cyst of pancreas (principal)
CPT/HCPCS: 74183; A9585

== ENCOUNTER → 2023-12-26 09:50 | Outpatient (BNV) | payer MEDICARE, SELFPAY | PROVIDERS: Visit Provider Radiology Diagnostic Radiology | DX: K86.2 Cyst of pancreas (principal) | CPT/HCPCS: 74183 ==

== ENCOUNTER 2024-04-13 06:28 | Day surgery (SDC) | payer MEDICARE, SELFPAY ==
[2024-04-09 14:21] VITALS: BMI 18.0
--- NOTE | 2024-04-12 08:57 | HO.ANESPROP2 ---
Documented by User: Bianca Buckley NP 04/12/24 08:59 HPI - Anesthesia Eval Consult details Narrative: 73yo F for Colonoscopy Cardiac optimized. Follows [facility] cardiology for HLD, coronary artery calcification, LAFB, mild LVH PMFSH Past Medical History Medical History (Updated 04/09/24 @ 14:21 by Libby Zuniga, RN) Ambulates with cane LVH (left ventricular hypertrophy) Elevated cholesterol HTN (hypertension) CAD (coronary artery disease) IBS (irritable bowel syndrome) GERD (gastroesophageal reflux disease) Pancreatic cyst Hepatic cyst Spinal stenosis Back pain Squamous cell carcinoma, face Left ankle pain Left foot pain Breast tumor Seasonal allergies Heart murmur First-degree atrioventricular block Atrial enlargement, left Pain syndrome, chronic Reflex sympathetic dystrophy Family History Family history of problems with anesthesia: No Surgical History Surgical History (Updated 04/09/24 @ 14:18 by Libby Zuniga, FORD) Hx of colonoscopy (04/18/23) Hx of lumpectomy Hx of foot surgery Hx of sinus surgery History of esophagogastroduodenoscopy (EGD) Hx of cholecystectomy History of ERCP H/O hemorrhoidectomy Previous back surgery Previous section History of Problems with Anesthesia: No Social History Social History Patient Tobacco Use Status: Never used Tobacco Advance Directives: No Advance Directives Information Provided: Yes Meds Allergies Allergy/AdvReac Type Severity Reaction Status Date / Time Beta-Blockers Allergy Severe Dizziness Verified 04/13/24 07:05 (Beta-Adrenergic Bloc Penicillins Allergy Severe Rash Verified 04/13/24 07:05 Home Medications ?Medication ?Instructions ?Recorded ?Confirmed ?Last Taken ?Type cetirizine 10 mg capsule (Zyrtec) 10 mg PO DAILY 10/28/22 04/13/24 04/13/24 History dicyclomine 10 mg capsule 20 mg PO TID PRN Abdominal 10/28/22 04/13/24 Unknown History Discomfort esomeprazole magnesium 40 mg 40 mg PO DAILY 10/28/22 04/13/24 04/13/24 History capsule,delayed release (Nexium) nortriptyline 50 mg capsule 50 mg PO BID 10/28/22 04/13/24 Unknown History topiramate 200 mg tablet 200 mg PO TID 10/28/22 04/13/24 04/13/24 History ubidecarenone-omega 3-vit E 50 1 cap PO DAILY 10/28/22 04/13/24 04/06/24 History mg-300 (180-120)mg-30 unit capsule bisacodyl 5 mg tablet,delayed 5 mg PO BEDTIME PRN Constipation 04/09/24 04/13/24 04/13/24 History release (Dulcolax (bisacodyl)) melatonin 04/09/24 Unknown History Tylenol 1,000 mg PO DAILY 04/13/24 04/13/24 04/13/24 History evolocumab 140 mg/mL subcutaneous 140 mg subcut Q2W 04/13/24 04/13/24 Unknown History syringe (Repatha Syringe) Exam Height,Weight and Vital Signs: Height 4 ft 10 in Weight 39.009 kg Assessment and Plan Assessment Anesthesia Assessment: Chart Reviewed Final Anesthetic Review Family History of Problems with Anesthesia: No History of Problems with Anesthesia: No Documented by User: Will Meneses MD 04/13/24 07:26 PMFSH Past Medical History Medical History (Updated 04/09/24 @ 14:21 by Libby Zuniga, FORD) Ambulates with cane LVH (left ventricular hypertrophy) Elevated cholesterol HTN (hypertension) CAD (coronary artery disease) IBS (irritable bowel syndrome) GERD (gastroesophageal reflux disease) Pancreatic cyst Hepatic cyst Spinal stenosis Back pain Squamous cell carcinoma, face Left ankle pain Left foot pain Breast tumor Seasonal allergies Heart murmur First-degree atrioventricular block Atrial enlargement, left Pain syndrome, chronic Reflex sympathetic dystrophy Surgical History Surgical History (Updated 04/09/24 @ 14:18 by Libby Zuniga RN) Hx of colonoscopy (04/18/23) Hx of lumpectomy Hx of foot surgery Hx of sinus surgery History of esophagogastroduodenoscopy (EGD) Hx of cholecystectomy History of ERCP H/O hemorrhoidectomy Previous back surgery Previous section Social History Social History Patient Tobacco Use Status: Never used Tobacco Advance Directives: No Advance Directives Information Provided: Yes Meds Allergies Allergy/AdvReac Type Severity Reaction Status Date / Time Beta-Blockers Allergy Severe Dizziness Verified 04/13/24 07:05 (Beta-Adrenergic Bloc Penicillins Allergy Severe Rash Verified 04/13/24 07:05 Home Medications ?Medication ?Instructions ?Recorded ?Confirmed ?Last Taken ?Type cetirizine 10 mg capsule (Zyrtec) 10 mg PO DAILY 10/28/22 04/13/24 04/13/24 History dicyclomine 10 mg capsule 20 mg PO TID PRN Abdominal 10/28/22 04/13/24 Unknown History Discomfort esomeprazole magnesium 40 mg 40 mg PO DAILY 10/28/22 04/13/24 04/13/24 History capsule,delayed release (Nexium) nortriptyline 50 mg capsule 50 mg PO BID 10/28/22 04/13/24 Unknown History topiramate 200 mg tablet 200 mg PO TID 10/28/22 04/13/24 04/13/24 History ubidecarenone-omega 3-vit E 50 1 cap PO DAILY 10/28/22 04/13/24 04/06/24 History mg-300 (180-120)mg-30 unit capsule bisacodyl 5 mg tablet,delayed 5 mg PO BEDTIME PRN Constipation 04/09/24 04/13/24 04/13/24 History release (Dulcolax (bisacodyl)) melatonin 04/09/24 Unknown History Tylenol 1,000 mg PO DAILY 04/13/24 04/13/24 04/13/24 History evolocumab 140 mg/mL subcutaneous 140 mg subcut Q2W 04/13/24 04/13/24 Unknown History syringe (Repatha Syringe) Exam Airway Mallampati Class: II TM Dist: >3cm Neck ROM: Full Loose/Missing/Broken Teeth: No Heart: ok Lungs: ok Assessment and Plan Assessment Anesthesia Assessment: Anesthesia Plan Discussed Final Anesthetic Review NPO: Yes ASA Class: III Final Preanesthetic Review: No Changes in Pt Med Stat, Meds/Allgs Chart Reviewed, Consent Obtained/Reviewed and Anes Risks/Benef Reviewed Patient Risk: Intermediate Procedure Risk: Low Anesthetic Plan Anesthetic Plan: MAC: and Agree w/ Assess. and Plan Disposition: Standard PACU
--- OUTSIDE RECORDS SUMMARY | 2024-04-13 06:30 | XMS_ITS | Data Portability ---
Author Organization [facility], [address] Address [address] [place] [address] Care Team Providers Care Logistics Clerk Name Role Phone ANATOLY RUIZ Primary Care Provider Assessment No assessment recorded. Plan of Treatment Reminders Order Date Submit Date Provider Last Modified By Organization Details Last Modified Time Details Appointments None recorded. Lab None recorded. Referral None recorded. Procedures None recorded. Surgeries None recorded. Imaging XR, finger(s), 2 or more view - wood splinter in left index finger. need to rule out any foreign body in left index finger. 2022 023 [facility] (Imaging), [address] [place] [address], [address], 3 08:03:07 Medication Orders Bactrim DS 800 mg-160 mg tablet 2022 023 [facility][id number], [address] [place], [address], 3 19:44:40 Patient TargetsNo targets recorded. Patient Instructions Encounter Date Encounter Id Patient Instructions Last Modified By Organization Details Last Modified Time 02/18/2023 [id number] object in the skin: care instructions Not available 02/18/2023 14:22:27 A puncture wound can happen anywhere on your body. These wounds tend to be narrower and deeper than cuts. A puncture wound is usually left open instead of being closed. This is because a puncture wound can be easily infected, and closing it can make infection even more likely. You will probably have a bandage over the wound. The doctor has checked you carefully, but problems can develop later. If you notice any problems or new symptoms, get medical treatment right away. How can you care for yourself at home? Keep the wound dry for the first 24 to 48 hours. After this, you can shower if your doctor okays it. Pat the wound dry. Don't soak the wound, such as in a bathtub. Your doctor will tell you when it's safe to get the wound wet. If your doctor told you how to care for your wound, follow your doctor's instructions. If you did not get instructions, follow this general advice: After the first 24 to 48 hours, wash the wound with clean water 2 times a day. Don't use hydrogen peroxide or alcohol, which can slow healing. You may cover the wound with a thin layer of petroleum jelly, such as Vaseline, and a non-stick bandage. Apply more petroleum jelly and replace the bandage as needed. Prop up the sore area on pillows anytime you sit or lie down during the next 3 days. Try to keep it above the level of your heart. This helps reduce swelling. Avoid any activity that could cause your wound to get worse. Be safe with medicines. Read and follow all instructions on the label. If the doctor gave you a prescription medicine for pain, take it as prescribed. If you are not taking a prescription pain medicine, ask your doctor if you can take an oyho-pnl-ympjoot medicine. If your doctor prescribed antibiotics, take them as directed. Do not stop taking them just because you feel better. You need to take the full course of antibiotics. Not available 02/18/2023 14:18:52 What are common finger injuries? Common finger injuries include: ? Finger sprain ? A sprain is when a ligament tears or gets stretched too much. Ligaments are tough bands of tissue that connect bones to other bones. Symptoms of a finger sprain can include pain, swelling, stiffness, or weakness. People sometimes call this a jammed finger. ? Flexor tendon injury ? Tendons are strong bands of tissue that connect muscles to bones. In a flexor tendon injury, a tendon on the palm side of the hand is torn or cut. If the cut or tear is near the tip of the finger, it keeps the finger tip from being able to bend. The fingertip stays straight. Doctors sometimes use the term jersey finger to describe this injury. ? Extensor tendon injury ? In this injury, a tendon on the back of the hand is torn or cut. If the tear or cut is near the tip of the finger, it causes the tip of the finger to stay bent. The finger is unable to straighten. One common type of extensor tendon injury is called mallet finger . This happens when the finger joint closest to the fingernail gets hurt. Besides making the fingertip bent, mallet finger causes pain and swelling on top of the joint. Another common type of extensor tendon injury is called a boutonniere deformity. This happens when the tendon tears and slips out of place. It makes the finger joint nearest the tip of the finger stay straight, and the finger joint in the middle of the finger stay bent. ? Trigger finger ? This condition keeps a person's finger from straightening normally. When trying to straighten the finger, the finger locks or catches in a bent position. Trigger finger can also cause pain in the finger or palm. Trigger finger is caused by a problem with a tendon. Will I need tests? Probably. Your doctor or nurse will ask about your symptoms and do an exam. They will probably do an X-ray of your finger or hand. In some cases, they might also do more imaging tests, such as an ultrasound or CT or MRI scan. Imaging tests create pictures of the inside of the body. How are finger injuries treated? Treatment depends on the type of finger injury you have and how severe it is. If you have a lot of pain or a severe injury, your doctor will prescribe a strong pain medicine. If your injury is mild, your doctor might recommend that you take an zjwq-wmf-bqxrvqm medicine for your pain. Ckrr-xal-wtbuuwr medicines include acetaminophen (sample brand name: Tylenol), ibuprofen (sample brand names: Advil, Motrin), and naproxen (sample brand name: Aleve). Treatments for your finger injury can include 1 or more of the following: ? Rest your hand. ? Keep your hand raised above the level of your heart (when possible). ? Put ice on your finger ? To reduce swelling, you can put a cold gel pack, bag of ice, or bag of frozen vegetables on the injured area every 1 to 2 hours, for 15 minutes each time. You should put a thin towel between the ice (or other cold object) and your skin. You should use the ice (or other cold object) for at least 6 hours after your injury. Some people find it helpful to ice longer, even up to 2 days after their injury. ? Wear an elastic bandage (such as an JADA wrap). ? Nish taping ? Nish taping involves taping your injured finger to the finger next to it. This is done most often to treat finger sprains. It is not done to treat tendon injuries or trigger finger. ? Wear a splint ? Splints are usually used to treat tendon injuries and trigger finger. For some of these injuries, such as mallet finger, you need to wear the splint at all times. ? Surgery ? Some people need surgery to fix a ligament or tendon. Hand surgery is usually done by a specialist called a hand surgeon. ? Physical therapy ? After your injury has healed, your doctor might recommend that you work with a physical therapist (exercise expert). They can teach you exercises to strengthen your fingers and help them move more easily. How long do finger injuries take to heal? Finger injuries can take weeks to months to heal, depending on the type of injury. It also depends on the person. Healthy children usually heal very quickly. Older adults or adults with other medical problems can take much longer to heal. Can I do anything to improve the healing process? Yes. It's important to follow all of your doctor's instructions while your finger injury is healing. For example, you might not be allowed to bend or straighten your finger for a certain amount of time. Your doctor might also recommend that you avoid certain activities. If you smoke, it can take longer for injuries to heal. If you are having trouble quitting smoking, your doctor or nurse can help. When should I call my doctor or nurse? Your doctor or nurse will tell you when to call them. In general, you should call them if: ? You have severe pain, or your pain or swelling gets worse. ? You have numbness or tingling in your fingers, or your fingers look blue or purple. ? You bent or straightened your finger, and you weren't supposed to bend or straighten it. Not available 02/18/2023 14:18:42 Reason for Referral None Reported. Results Created Date Observation Date Name Description Value Unit Range Abnormal Flag Note LastModifiedBy Organization Detail LastModifiedTime 02/25/20 23 02/18/2023 XR, finge r(s), 2 or more view No observ ation record ed. [email or web address] [place], [address], 06/02/2023 13:25:43 Result Notes None recorded. Problems Name Problem SNOMED Code Status Onset Date Resolution Date Notes Provider Name and Address Organization Details Recorded Time Heart disease 99522873 Active 2022 VANESSA LUPICA null, [place] - [facility] 3 13:50:46 Hyperchole sterolemia 50585305 Active 2022 VANESSA LUPICA null, [place] - [facility] 3 13:50:54 Complex regional pain syndrome 236293001 Active 2022 VANESSA LUPICA null, [place] - [facility] 3 13:51:09 Left atrial enlargemen t 1134442714396 9 Active 2022 1st degree AV block VANESSA LUPICA null, PA - [facility] 3 13:51:32 Heart murmur 86634247 Active 2022 VANESSA LUPICA null, [place] - [facility] 3 13:51:39 Problem Notes None recorded. Procedures Surgical History Date Name Laterality Status Provider Name and Address Organization Details Recorded Time section completed VANESSA LUPICA PA - [facility] 3 13:52:45 breast procedure completed VANESSA LUPICA PA - [facility] 3 13:53:13 sinusotomy, multiple completed CORA RENETTA LUPICA PA - [facility] 3 13:53:33 procedure on back completed VANESSA LUPICA PA - [facility] 3 13:53:42 procedure on foot completed VANESSA LUPICA PA - [facility] 3 13:53:54 procedure on ankle completed VANESSA LUPICA PA - [facility] 3 13:54:00 hemorrhoidectomy completed VANESSA LUPICA PA - [facility] 3 13:54:08 endoscopic retrograd e cholangiopancreatography completed VANESSA SCHWARZ PA - [facility] 3 13:54:27 cholecystectomy completed VANESSA SCHWARZ PA - [facility] 3 13:54:40 excision of squamous cell carcinoma completed VANESSA SCHWARZ PA - [facility] 3 13:55:00 excision of basal ce ll carcinoma completed VANESSA SCHWARZ PA - [facility] 3 13:55:18 Imaging Results Imaging Date Name Status LastModified by Organiz ation Details LastModified Time 02/18/2023 XR, finger(s), 2 or more view completed [email or web address], [address], 06/02/2023 13:25:43 Procedure Notes None recorded. Medical Equipment None Reported. Allergies Allergen ID Allergen Name Allergen Category Reaction Reaction Severity Criticality Documentation Date Start Date Code Code System Note Provider Name and Address Organization Details Recorded Time 943979 Product containin g penicilli n and antibioti c (product) medicatio n rash Not available Not available 02/18/2023 72766 05 SNOMED VANESSA moffett, [place] - [facility] 3 13:47:47 418083 Product containin g beta adrenergi c receptor antagonis t (product) medicatio n dizziness Not available Not available 02/18/2023 16096 009 SNOMED VANESSA moffett, [place] - [facility] 3 13:48:01 Medications Name Sig Start Date Stop Date Status Note LastModified by Organization Details LastModified Time meloxicam 15 mg tablet TAKE 1 TABLET BY MOUTH EVERY DAY 02/18 completed Not Available Not Available Not Available Nexium 40 mg capsule,del ayed release Take 1 capsule every day by oral route. active Not Available Not Available No t Available dicyclomine 20 mg tablet Take 1 tablet 4 times a day by oral route as needed. active Not Available Not Available No t Available topiramate 200 mg tablet TAKE 1 TABLET BY MOUTH THREE TIMES A DAY active Not Available Not Available No t Available nortriptyli ne 50 mg capsule TAKE 1 CAPSULE BY MOUTH TWICE DAILY active Not Available Not Available No t Available Bactrim DS 800 mg-160 mg tablet Take 1 tablet every 12 hours by oral route with meals for 7 days. 2022 active Not Available Not Available Not Avai lable prednisolon e sodium phosphate 5 mg base/5 mL (6.7 mg/5 mL) oral soln TAKE 5ML (1 TEASPOONF UL) BY MOUTH TWICE DAILY FOR 7 DAYS. GARGLE AND SWALLOW 02/18 completed Not Available Not Available Not Available Dulcolax (bisacodyl) active Not Available Not Available Not Available CoQ10 daily active Not Available Not Availa ble Not Available potassium chloride ER 20 mEq tablet,exte nded release TAKE 1 TABLET BY MOUTH EVERY DAY 02/18 completed Not Available Not Available Not Available Praluent Pen 75 mg/mL subcutaneou s pen injector INJECT 75MG SUBCUTANE OUSLY EVERY 14 DAYS active Not Available Not Available No t Available Vitals Date Recorded Body height Body mass index (BMI) Body weight Respiratory rate Body temperature Pain severity - 0-10 verbal numeric rating [Score] - Reported Oxygen saturation Oxygen saturation in Arterial blood by Pulse oximetry Heart rate Systolic blood pressure Diastolic blood pressure Provider Name and Address Organization Details Last Updated DateTime 3 147.32 cm 17.1 kg/m2 75982.5 7 g 16 /min 97.5 [degF] 0 99 % 99 % 98 /min 144 mm[Hg] 83 mm[Hg] VANESSA SCHWARZ PA - [facility] 13:58:23 Social History Question Answer Notes LastModified by Organizat ion Details LastModified Time Tobacco Smoking Status Never Smoker VANESSA SCHWARZ null, [place] - [facility] 02/18/2023 13:56:37 What Is Your Level Of Alcohol Consumption? Occasional Information not available 02/18/2023 Which Illicit Or Recreational Drugs Have You Used? Marijuana--man age Pain [email or web address] Information not available 02/18/2023 Do You Use Any Illicit Or Recreational Drugs? Yes Information not available 02/18/2023 Have You Recently Traveled Abroad? No [email or web address] Information not available 02/18/2023 Do You Or Have You Ever Used Any Other Forms Of Tobacco Or Nicotine? No Information not available 02/18/2023 Sex: Unknown Functional Status None recorded. Mental Status None recorded. Family History Relationship Description Onset Age of this Age Resolved Age Notes LastModified by Organization Details LastModified Time Unspecified Relation Malignant neoplastic disease Not available 2022 13:55:47 Medical History No medical history recorded. Gynecological History Statement/Question Response Date of LMP Obstetrics History GPAL:G 0 P 0 0 0 0 Immunizations Vaccine Type Date Status Note Provider Nam e and Address Organization Details Recorded Time Tdap 02/18/2023 completed Jose Raul Damico NP [address] [facility] [address] [place], [address], [place] - [facility] 02/20/2023 19:44:40 Past Encounters Encounter ID Performer Location Encounter Start Date Encounter Closed Date Diagnosis/Indication Diagnosis SNOMED-CT Code Diagnosis ICD10 Code Diagnosis [place] [id number] [place] [address] [place] [address] 02/18/2023 13:22:08 02/18/2023 14:26:45 Wood splinter in finger 685840916 S60.451A Puncture w ound of finger without foreign body 922290072 S61.231A Administra tion of tetanus vaccine 256072454 Z23 Health Concerns Section Related Observation LastModified by Organization Detai ls LastModified Time None Recorded Concern Status LastModified by Organization Details LastModified Time None Recorded Advance Directives Directive None Recorded Payers Encounter Date Sequence Insurance Name Policy Number Policy Masters Covered Member ID Masters Member ID Guarantor Name 02/18/2023 1 [employer] (MEDICARE REPLACEMENT PPO) [id number] José Martinez Sherita [id number] Ojsé Sherita 02/18/2023 1 [place] [employer] José Magallon [id number] Josébrooke Magallon Notes Date Note Type Note Provider Name and Address Organization Details Recorded Time 02/18/2023 text/html Finger PainRepor emmett bypatient.source of patient informationsource of patient information patient; 72 year old female presented with left hand index finger puncture wound by wood splinter happen 4 months ago. stating there is small abscess developing in the distal part of left index finger and she also have difficulty bending her left index finger distal joint. denies any fever or fever with chills , denies any nausea, vomiting diarrhea. denies any SOB or respiratory distress. Onset:abrupt onset; 6 weeks ago Locationlocation: left; Index Finger;proximal phalanx;middle phalanx Neurovascular Status:no numbness or tingling Symptoms:pain with ROM;swelling Treatment:OTC medication Jose Raul Damico NP [address] [place], [address], [place] - [facility] 02/20/2023 19:44:57 OBGyn Episode No OBEpisode recorded.
--- OUTSIDE RECORDS SUMMARY | 2024-04-13 06:30 | XMS_ITS | Data Portability ---
Author Organization [place] [facility] Genoveva Wolfe AONE Crane Address [address] [place] [address] Care Team Providers Care Buffing Machine Operator Name Role Phone ANATOLY RUIZ Referring Provider [phone] ANATOLY RUIZ Primary Care Provider [phone] Assessment Encounter Date Assessment Date Assessment LastModified by Organization Details LastModified Time 02/26/2023 02/26/2023 The above findings were discussed in detail today with the patient and her . She has evidence of a possible retained foreign body in her left ring finger from when she was working with wood about 3 months ago. This bothers her when she is doing knitting and activities of daily living. Treatment options were discussed with the patient today including conservative treatment, watching it and symptomatic management versus removal of the foreign body. I would like to do this in a controlled manner in the operating room however can be done under just local anesthesia if she does not want to undergo anesthesia. She would like to undergo removal. Risks of surgery were discussed with the patient which include but are not limited to bleeding, infection, injury to nerves, tendons, vessels, pain, stiffness, non-relief of symptoms, recurrence, needing more surgery in the future as well as risks of anesthesia. She also has the risk of a CRPS flareup which she knows how to deal with in the postop period. All questions were answered to the patient's satisfaction. They understood these risks and agreed to proceed, consent was obtained today. She will go to her drying tumbler operator for clearance. Will book surgery at her earliest convenience. If she notices improvement in her symptoms or concern for infection she should call the office and be seen sooner. All of her questions were answered, she is in agreement the plan. [email or web address] Not available 02/26/2023 12:58:45 Plan of Treatment Reminders Order Date Submit Date Provider Last Modified By Organization Details Last Modified Time Details Appointments None recorded . Lab None recorded . Referral None recorded . Procedures None recorded . Surgeries orthopae dic surgery - other (SURG) 2022 024 Not available 10:30:13 Imaging XR, finger(s ), 2 or more view [address] [facility] [place] [facility], [address], [place], [address], 20:12:54 Medication Orders None recorded . Patient TargetsNo targets recorded. Patient Instructions Encounter Date Encounter Id Patient Instructions Last Modified By Organization Details Last Modified Time 02/26/2023 [id number] views of the left index finger were ordered and reviewed today, this demonstrates no foreign body noted. There is mild arthritis at the index finger DIP joint. There is mild soft tissue swelling at the radial aspect at the DIP joint. No signs of bony erosion or osteomyelitis no other bony abnormality noted [email or web address] [id number] Not available 02/26/2023 12:56:06 Reason for Referral None Reported. Problems Name Problem SNOMED Code Status Onset Date Resolution Date Notes Provider Name and Address Organization Details Recorded Time Foreign body - finger 554799821 Active 023 Kandice Desir MD [address] [facility] [address], [place], [address] , [place] [facility] [place], [facility] 12:43:31 Problem Notes None recorded. Procedures Surgical History Date Name Laterality Status Provider Name and Address Organization Details Recorded Time 3 ARB Diagnostic US completed Kandice Desir MD [address] [facility] [address], [place], [address], [place] [facility] [place] 02/26/2023 12:55:15 Imaging Results None recorded. Procedure Notes None recorded. Medical Equipment None Reported. Allergies Allergen ID Allergen Name Allergen Category Reaction Reaction Severity Criticality Documentation Date Start Date Code Code System Note Provider Name and Address Organization Details Recorded Time 89919 Product containin g penicilli n and antibioti c (product) medicatio n Not available Not available Not available 02/26/2023 45516 05 SNHENRRY Ndiaye null, [place] [facility] 11:34:41 64893 Product containin g beta adrenergi c receptor antagonis t (product) medicatio n Not available Not available Not available 02/26/2023 20353 009 SNHENRRY moffett, [facility] 3 11:34:49 Medications Name Sig Start Date Stop Date Status Note LastModified by Organization Details LastModified Time meloxicam 15 mg tablet TAKE 1 TABLET BY MOUTH EVERY DAY active Not Available Not Available No t Available sulfamethoxa zole 800 mg-trimethop rim 160 mg tablet TAKE 1 TABLET BY MOUTH EVERY 12 HOURS WITH MEALS FOR 7 DAYS active Not Available Not Available N ot Available topiramate 200 mg tablet TAKE 1 TABLET BY MOUTH THREE TIMES A DAY active Not Available Not Available Not Available nortriptylin e 50 mg capsule TAKE 1 CAPSULE BY MOUTH TWICE DAILY active Not Available Not Available No t Available prednisolone sodium phosphate 5 mg base/5 mL (6.7 mg/5 mL) oral soln TAKE 5ML (1 TEASPOONFUL ) BY MOUTH TWICE DAILY FOR 7 DAYS. GARGLE AND SWALLOW active Not Available Not Available No t Available potassium chloride ER 20 mEq tablet,exten ded release TAKE 1 TABLET BY MOUTH EVERY DAY active Not Available Not Available No t Available Praluent Pen 75 mg/mL subcutaneous pen injector INJECT 75MG SUBCUTANEOU SLY EVERY 14 DAYS active Not Available Not Available No t Available Vitals Date Recorded Body height Body mass index (BMI) Body weight Provider Name and Address Organization Details Last Updated DateTime 02/26/2023 147.32 cm 16.9 kg/m2 48871.98 g Jessica Ndiaye [facility], [facility] 02/26/2023 11:35:07 Social History Question Answer Notes LastModified by Organizat ion Details LastModified Time Tobacco Smoking Status Never Smoker Jessica Ndiaye betina, [facility] 02/26/2023 11:35:32 What Is Your Level Of Alcohol Consumption? Occasional Information not available 02/26/2023 How Many Times Per Week Do You Consume Alcohol? Less Than 1 Time Per Week Information not available 02/26/2023 Which Illicit Or Recreational Drugs Have You Used? Pot Information not available 02/26/2023 Do You Use Any Illicit Or Recreational Drugs? Yes Information not available 02/26/2023 Do You Or Have You Ever Used Any Other Forms Of Tobacco Or Nicotine? No Information not available 02/26/2023 Sex: Unknown Functional Status None recorded. Mental Status None recorded. Family History Nothing Reported. Medical History No medical history recorded. Gynecological HistoryNo gynecological history recorded. Obstetrics History GPAL:G 0 P 0 0 0 0 Past Encounters Encounter ID Performer Location Encounter Start Date Encounter Closed Date Diagnosis/Indication Diagnosis SNOMED-CT Code Diagnosis ICD10 Code Diagnosis Note [id number] Kandice Desir MD [facility] [address] [facility] [address] [place] [address] 02/26/2023 10:58:49 02/26/2023 13:05:20 Pain in finger of left hand [id number] 80837 M79.645 Foreign body - finger 27 6146987 S60.451A Health Concerns Section Related Observation LastModified by Organization Detai ls LastModified Time None Recorded Concern Status LastModified by Organization Details LastModified Time None Recorded Advance Directives Directive None Recorded Payers Encounter Date Sequence Insurance Name Policy Number Policy Masters Covered Member ID Masters Member ID Guarantor Name 02/26/2023 1 [employer] [id number] José Magallon [id number] José Magallon Notes Date Note Type Note Provider Name and Address Organization Details Recorded Time 02/26/2023 text/html This is a 72-year-old tyipb-nsfx-cticlzt t female who is presenting with a left index finger foreign body. She was working with wood to make a fire in late November and felt a piece of the wood go into the radial aspect of her finger. She pulled out a piece of the wooden splinter however feels like there was a retained part of it that stayed in her superficial skin. She tried to get it out however was unable to do so at the time. She waited to see if it would work its way out however she does not feel like it did. She felt like it got infected when it was red and swollen for 2 or 3 weeks at the beginning of February, she took Bactrim for 5 days which cleared up the infection, however she is still feeling pain with palpation and feels a sharp point where she feels like the wood entered her skin. She has difficulty with making a full fist and flexing the DIP joint and she uses the finger when she notes which brings pain in the area. Denies any numbness or tingling. Denies any pain anywhere else. She does have a history of complex regional pain syndrome which has affected her left hand before, she also has a history of a first-degree left heart block and a heart murmur for which she sees a drying tumbler operator. She had a colonoscopy in November and was cleared by her cardiology at that time. Kandice Desir MD [address] [place] [address], [place], [address], [place] [facility] [place] 02/26/2023 12:59:33 OBGyn Episode No OBEpisode recorded.
--- OUTSIDE RECORDS SUMMARY | 2024-04-13 06:30 | XMS_ITS ---
Author Name [facility] Organization Unknown History of Medication Use Medication Directions Dispensed Refills Start Date End Date Stat us potassium chloride ER 20 mEq tablet,extended release TAKE 1 TABLET BY MOUTH EVERY DAY active Allergies Allergen Reaction Severity Comment Documented Date Source Statu s PENICILLINS ENS_AONECT BETA-BLOCKERS (BETA-ADRENERGIC BLOCKING AGTS) ENS_AONECT Problems Problem Status Onset Date Problem Type Date of Resoluti on Source Foreign body - finger active 2023-02-26 ProblemAct ENS_AONECT
[2024-04-13 07:10] VITALS: BP 161/96; PULSE 97; RESP 16; TEMP 36.6; O2SAT 99; BMI 17.6
--- NOTE | 2024-04-13 07:27 | MHC.SHP ---
Pre-Procedural Eval Section A - 24 Hr Update-Section A only Date of Service: 04/13/24 Section B - Complete if H&P > 30 days Chief Complaint: Personal history of colonic polyps Details of Present Illness: see3 H*P, path report and office notes Relevant Family History (Specify if Yes): No Relevant Social History: None Present Medications: see Short Stay Collaborative assessment Medical History: No relevant PMH History of Previous Operations: No relevant previous surgery Allergies: Allergies Allergy/AdvReac Type Severity Reaction Status Date / Time Beta-Blockers Allergy Severe Dizziness Verified 04/13/24 07:05 (Beta-Adrenergic Bloc Penicillins Allergy Severe Rash Verified 04/13/24 07:05 Review of Systems Sugical H&P ROS: Negative: Constitution, Cardiovascular, Respiratory, Neurological, Psychiatric, Hem-Onc, Allergic/Immunologic, Gastrointestinal, Genitourinary, Musculoskeletal, Integumentary, Endocrine and Eyes/Ears/Nose/Throat Exam Surgical H&P Exam: Normal: HEENT, Normal: Heart, Normal: Lungs, Normal: Extremities, Normal: Abdomen, Normal: Skin and Normal: Neurological Plan Diagnosis/Plan: Unchanged I have reviewed the history and physical and performed a pertinent physical examination on my patient. No changes have occurred unless specified. Time Spent With Patient Time: Total time managing care of this patient today ____ minutes.
[2024-04-13] MEDS: Lactated Ringers 1,000 ML 100 ML IVCONT (07:30)
[2024-04-13 08:25] VITALS: BP 115/73; PULSE 95; RESP 20; TEMP 36.8; O2SAT 100
[2024-04-13 08:40] VITALS: BP 152/80; PULSE 85; RESP 20; TEMP 36.8; O2SAT 100
--- NOTE | 2024-04-13 09:15 | OP_ITS ---
DATE OF SERVICE: 04/13/2024 SURGEON: Franco Michael MD INDICATIONS:: Large flat colon polyps requiring short term followup to assess for complete resection. PROCEDURE PERFORMED: Colonoscopy to the terminal ileum with snare polypectomy and injection of Antonia ink. ESTIMATED BLOOD LOSS: COMPLICATIONS: ANESTHESIA: Monitored anesthesia care. ASSISTANTS: SPECIMENS: DESCRIPTION OF PROCEDURE: A history and physical was performed. The risks and benefits of the procedure were explained to the patient, and informed consent was obtained. The patient was placed in the left lateral decubitus position. A digital rectal exam was performed and was found to be normal. The Olympus pediatric video colonoscope was introduced into the rectum and advanced to the cecum. The cecum was identified by transillumination, palpation, and identification of ileocecal valve. Examination was performed. The scope was removed. She tolerated the procedure well and was returned to the recovery area in stable condition. FINDINGS: The terminal ileum was examined and appeared normal. The visualized colonic mucosa was normal. The previous polypectomy site in the right colon with Antonia ink marking showed no evidence of recurrent polypoid tissue. In the proximal transverse colon at 70 cm was a flat polyp measuring approximately 10 x 15 mm with 2 foci that were snare resected with no immediate complications. Antonia ink was then used to lashonda the location of the polyp with injection of a total of 3 cc above and below the location. The polyp appeared adequately resected at the time of the procedure, but will need close followup pending pathology. At 30 cm was an 8 x 10 mm polyp on a fold, which was snared and resected, and in the rectum, at about 15 to 20 cm was a final 10 mm polyp, which was resected with a hot snare. Retroflexed examination showed internal hemorrhoids that were mildly inflamed. The quality of the prep was good. IMPRESSION: Colon polyps. RECOMMENDATION: 1. Follow up the biopsy results. 2. Short-term followup will likely be necessary in 6 to 12 months pending pathology. MD JULIOCESAR Moon/TAI / [id number] MTDD
== END 2024-04-13 09:05 | disposition home or self-care (01) ==
PROVIDERS: Visit Provider Internal Medicine Gastroenterology
PROC: 0DJD8ZZ Inspection of Lower Intestinal Tract, Via Natural or Artificial Opening Endoscopic (ICD-10-PCS; CPT 45378; principal; 2024-04-13 07:30)
DX: Z12.11 Encounter for screening for malignant neoplasm of colon (principal); Z86.0101 Personal history of adenomatous and serrated colon polyps; D12.4 Benign neoplasm of descending colon; D12.5 Benign neoplasm of sigmoid colon; D12.8 Benign neoplasm of rectum; K64.8 Other hemorrhoids; K58.9 Irritable bowel syndrome, unspecified; R10.9 Unspecified abdominal pain; K21.9 Gastro-esophageal reflux disease without esophagitis; K86.2 Cyst of pancreas; Z80.0 Family history of malignant neoplasm of digestive organs; G90.50 Complex regional pain syndrome I, unspecified; I10 Essential (primary) hypertension; I25.10 Atherosclerotic heart disease of native coronary artery without angina pectoris; E78.00 Pure hypercholesterolemia, unspecified; Z79.899 Other long term (current) drug therapy; Z99.89 Dependence on other enabling machines and devices; Z88.0 Allergy status to penicillin; Z88.8 Allergy status to other drugs, medicaments and biological substances; Z98.890 Other specified postprocedural states
CPT/HCPCS: 45385; 45381; 88305; J2003; J2405; J2704

== ENCOUNTER 2024-06-01 09:44 | Outpatient (REF) | payer MEDICARE, SELFPAY ==
--- NOTE | ~2024-06-01 | MR_ITS ---
EXAMINATION: MR LUMBAR SPINE WITHOUT CONTRAST CLINICAL INFORMATION: Radiculopathy. COMPARISON: None available. TECHNIQUE: MRI of the lumbar spine was obtained using routine sequences without contrast. FINDINGS: Last rib-bearing vertebra labeled T12. No bone marrow STIR signal abnormality. Multilevel disc desiccation L3-4 to L5-S1. Grade 1 anterolisthesis L3-4 and L4-5. Conus medullaris ends at superior endplate of L1 with normal signal. T12-L1: No disc herniation. No neuroforamina stenosis. L1-2: No disc herniation. No neuroforamina stenosis. L2-3: Broad-based disc bulging. Facet joint and ligamentum flavum hypertrophy. Reduced AP diameter of the thecal sac and the neural foramina. L3-4: Grade 1 anterolisthesis resulting in central spinal canal and bilateral neuroforamina stenosis compressing the neural elements of the thecal sac. Facet joint and ligamentum flavum hypertrophy. L4-5: Grade 1 anterolisthesis. Broad-based disc bulging. Facet joint and ligamentum flavum hypertrophy. Central spinal canal and bilateral neuroforamina stenosis likely encroaching the neural elements. L5-S1: Left hemilaminectomy. Broad-based disc bulging. Facet joint hypertrophy. Bilateral neuroforamina stenosis encroaching the exiting nerve roots more conspicuous on the left side. Asymmetric mild fatty atrophy of the left psoas muscle. Cystic lesions in the kidneys. No prevertebral compartment hematoma, mass or fluid collection. MR/MR lumbar spine wo con IMPRESSION: Grade 1 anterolisthesis L3-4 resulting in central spinal canal and to a lesser extent bilateral neuroforamina stenosis compressing the neural elements of the thecal sac, similar findings to a lesser extent at L4-5. Spondylosis at L5-S1 resulting in bilateral neuroforamina stenosis encroaching the exiting nerve roots. Electronically signed by: Chad Ledezma MD 06/01/2024 03:33 PM EDT
--- OUTSIDE RECORDS SUMMARY | 2024-06-01 11:05 | XMS_ITS | Data Portability ---
Author Organization [facility], [address] Address [address] [place] [address] Care Team Providers Care Parcel Post Delivery Name Role Phone ANATOLY RUIZ Primary Care [...] body in left index finger. 2022 023 [facility] ([facility]), [address] [place] [address], [address], 3 08:03:07 Medication Orders Bactrim DS 800 mg-160 mg tablet 2022 023 [facility] #[id number], [address] [place], [address], 3 19:44:40 Patient TargetsNo targets recorded. Patient Instructions Encounter Date Encounter Id Patient Instructions Last Modified By Organization Details Last Modified Time 02/18/2023 [id number] object in the skin: care instructions Not [...] your doctor if you can take an hrwf-ock-wqlvqjw medicine. If your doctor prescribed antibiotics, take [...] doctor might recommend that you take an ozge-bda-kxvmlbk medicine for your pain. Yfqs-xly-skyvuof medicines include acetaminophen (sample brand name: Tylenol), [...] view No observ ation record ed. [email or web address] [place], [address], 06/02/2023 13:25:43 Result Notes None recorded. Problems Name Problem SNOMED Code Status Onset Date Resolution Date Notes Provider Name and Address Organization Details Recorded Time Heart disease 25495119 Active 2022 VANESSA LUPICA null, [place] - [facility] 3 13:50:46 Hyperchole sterolemia 68066375 Active 2022 VANESSA LUPICA null[place] [facility] 3 13:50:54 Complex regional pain syndrome 624270503 Active 2022 VANESSA LUPICA null, [place] - [facility] 3 13:51:09 Left atrial enlargemen t 3082526017958 9 Active 2022 1st degree AV block VANESSA LUPICA null[place] - [facility] 3 13:51:32 Heart murmur 92885475 Active 2022 VANESSA LUPICA null, [place] - [...] finger(s), 2 or more view completed [email or web address], [address], 06/02/2023 13:25:43 Procedure Notes None recorded. Medical Equipment None Reported. Allergies Allergen ID Allergen Name Allergen Category Reaction Reaction Severity Criticality Documentation Date Start Date Code Code System Note Provider Name and Address Organization Details Recorded Time 802587 Product containin g penicilli n (product) medicatio n rash Not available Not available 02/18/2023 37053 8001 SNOMED VANESSA moffett, [place] - [facility] 3 13:47:47 170601 Product containin g beta adrenergi c receptor antagonis t (product) medicatio n dizziness Not available Not available 02/18/2023 50412 009 SNOMED VANESSA [facility]ett, [place] [facility] [...] Updated DateTime 3 147.32 cm 17.1 kg/m2 30106.5 7 g 16 /min 97.5 [degF] 0 99 % 99 % 98 /min 144 mm[Hg] 83 mm[Hg] VNAESSA SCHWARZ [place] - [facility] 13:58:23 Social History Question Answer Notes LastModified by Organizat ion Details LastModified Time Tobacco Smoking Status Never Smoker VANESSA SCHWARZ null, [place] [facility] 02/18/2023 13:56:37 What Is Your Level Of Alcohol Consumption? Occasional [email or web address] Information not available 02/18/2023 Which Illicit Or Recreational Drugs Have You Used? Marijuana--man age Pain [email or web address] Information not available 02/18/2023 Do You Use Any Illicit Or Recreational Drugs? Yes [email or web address] Information not available 02/18/2023 Have You Recently Traveled Abroad? No Information not available 02/18/2023 Do You Or Have You Ever Used Any Other Forms Of Tobacco Or Nicotine? No Information not available 02/18/2023 Sex: Unknown Functional Status None recorded. Mental Status None recorded. Family History Relationship Description Onset Age of this Age Resolved Age Notes LastModified by Organization Details LastModified Time Unspecified Relation Malignant neoplastic disease [email or web address] Not available 2022 13:55:47 Medical History No medical history recorded. Gynecological History Statement/Question Response Date of LMP Obstetrics History GPAL:G 0 P 0 0 0 0 Immunizations Vaccine Type Date Status Note Provider Nam e and Address Organization Details Recorded Time Tdap 02/18/2023 completed Jose Raul Damico NP [address] [facility] [place], [address], [place] [facility] 02/20/2023 19:44:40 Past Encounters Encounter ID Performer Location Encounter Start Date Encounter Closed Date Diagnosis/Indication Diagnosis SNOMED-CT Code Diagnosis ICD10 Code Diagnosis Note [id number] [place] [address] [place] [address] 02/18/2023 13:22:08 02/18/2023 14:26:45 Wood splinter in finger 212727035 S60.451A Puncture w ound of finger without foreign body 546991305 S61.231A Administra tion of tetanus vaccine 656088108 Z23 Health Concerns Section Related Observation LastModified by Organization Detai ls LastModified Time None Recorded Concern Status LastModified by Organization Details LastModified Time None Recorded Advance Directives Directive None Recorded Payers Encounter Date Sequence Insurance Name Policy Number Policy Masters Covered Member ID Masters Member ID Guarantor Name 02/18/2023 1 [employer] (MEDICARE REPLACEMENT PPO) [id number] José Martinez Sherita [id number] José Magallon 02/18/2023 1 MEDICARE [place]: [employer] José Magallon [id number] José Magallon Notes Date Note Type Note [...] Damico NP [address] [place], [address], [place] [facility] 02/20/2023 19:44:57 OBGyn Episode No OBEpisode recorded.
--- OUTSIDE RECORDS SUMMARY | 2024-06-01 11:05 | XMS_ITS | Continuity of Care Document ---
Author Organization [facility] Address [address] [place] [address]- Care Team Providers Care Animal Behaviorist Name Role Phone Amber Houston MD Primary Care Physician [phone] Encounter [facility] Date(s): 04/07/24 - 05/07/24 [facility] [address] [place] [address]- Encounter Type: Triage Allergies, Adverse Reactions, Alerts Substance Criticality Severity Reaction Reaction Severity Status penicillin Rash Active beta blockers Active Medications acetaminophen 500 mg oral capsule 2 capsule = 1,000 mg, By Mouth, 2 times a day, 0 Refills, Maintenance, 02/04/23 2:41:00 PM EST, Partial fill upon patient request if the prescription is for a schedule II opioid drug. Start Date: 02/04/23 Status: Ordered Repeat number: 1 dicyclomine 20 mg oral tablet 1 tablet = 20 mg, By Mouth, 4 times a day, PRN Abdominal pain, 0 Refills, Maintenance, 08/17/19 8:55:00 AM EDT Start Date: 08/17/19 Status: Ordered Repeat number: 1 Dulcolax 5 mg oral enteric coated tablet 1 tablet = 5 mg, By Mouth, Daily, 0 Refills, Maintenance, 12/03/19 12:27:00 PM EDT Start Date: 12/03/19 Status: Ordered Repeat number: 1 elppa CoQ10 50 mg oral capsule 2 capsule = 100 mg, By Mouth, Daily, # 60 capsule, 0 Refills, Maintenance, 12/20/20 11:20:00 AM EDT, Capsule, Partial fill upon patient request if the prescription is for a schedule II opioid drug. Start Date: 12/20/20 Status: Ordered Quantity: 60.0 Unit: capsule Repeat number: 1 melatonin 10 mg oral tablet 1 tablet = 10 mg, By Mouth, Daily at bedtime, PRN as needed for insomnia, # 200 tablet, 0 Refills, Maintenance, 02/04/23 2:41:00 PM EST, Tablet, Partial fill upon patient request if the prescription is for a schedule II opioid drug. Start Date: 02/04/23 Status: Ordered Quantity: 200.0 Unit: tablet Repeat number: 1 Misc Rx Refills 0, Maintenance, CBD oil, 12/03/19 9:41:00 AM EDT, Supply Start Date: 12/03/19 Status: Ordered Repeat number: 1 Misc Rx Refills 0, Maintenance, Marijuana edibles, 12/03/19 9:54:00 AM EDT, Supply Start Date: 12/03/19 Status: Ordered Repeat number: 1 Nexium 20 mg oral enteric coated capsule 2 capsule = 40 mg, By Mouth, Daily at bedtime, 0 Refills, Maintenance, 08/17/19 8:55:00 AM EDT Start Date: 08/17/19 Status: Ordered Repeat number: 1 nortriptyline 50 mg oral capsule 100 mg, 2, capsule, By Mouth, Daily at bedtime, Refills 0, Maintenance, 08/17/19 8:54:00 AM EDT Start Date: 08/17/19 Status: Ordered Repeat number: 1 Repatha Prefilled Syringe 140 mg/mL subcutaneous solution = 140 mg, Subcutaneous Infusion, Every 14 days, # 2 each, 11 Refills, Maintenance, 08/26/23 12:58:00PM EDT, [facility]/pharmacy #[id number], Partial fill upon patient request if the prescription is for a scheduleII opioid drug., 150, cm, 02/04/23 14:40:00 EST, Height Start Date: 08/26/23 Status: Ordered Quantity: 2.0 Unit: each Repeat number: 12 Topamax 200 mg oral tablet 1 tablet = 200 mg, By Mouth, 2 times a day, 0 Refills, Maintenance, 08/17/19 8:54:00 AM EDT Start Date: 08/17/19 Status: Ordered Repeat number: 1 Vitamin D3 2000 intl units oral capsule 1 capsule = 50 mcg, By Mouth, Daily, # 60 capsule, 0 Refills, Maintenance, 02/04/23 2:41:00 PM EST,Capsule, Partial fill upon patient request if the prescription is for a schedule II opioid drug. Start Date: 02/04/23 Status: Ordered Quantity: 60.0 Unit: capsule Repeat number: 1 ZyrTEC 10 mg oral tablet 1 tablet = 10 mg, By Mouth, Daily at supper, # 30 tablet, 0 Refills, Maintenance, 08/17/19 8:55:00 AMEDT, Tablet Start Date: 08/17/19 Status: Ordered Quantity: 30.0 Unit: tablet Repeat number: 1 Problem List Condition Confirmation Course Effective Dates Status Health St atus Informant AV block 1 Confirmed Active Complex regional pain syndrome I 2 Confirmed Active CAD (coronary artery disease) Confirmed Active Dyslipidemia Confirmed Active Heart murmur 3 Confirmed Active Hypertension Confirmed Active LVH (left ventricular hypertrophy) Confirmed Active Skin cancer 4 Confirmed Active Underweight Confirmed Active 13 yrs ago [address]0523 35yrs ago 45573 Social History Social History Type Response Smoking Status Never (less than 100 in lifetime) entered on: 12/02/19 Sex Female Sex Representation Female (finding) Patient Care team information Care Team Personnel Name: Amber Houston MD Position: [facility] Outreach Member Role: PCP Address: [address] [place] [address] Telecom: Name: Edie Sullivan [place] Position: S Outreach Member Role: Lifetime Consulting Physician Name: Bk Basurto RN Position: [facility] RN Member Role: Primary Care Nurse Care Team Related Persons Name: JESSICA BRADY Insurance Providers Guarantor name: CHRISTIANO CHRIS Health Plan Information #: 1 Payer: NA Member Number: NA Policy Number: NA Group Number: NA
== END 2024-06-01 09:45 | disposition home or self-care (01) ==
LOC: HO.MRI 09:44
PROVIDERS: Visit Provider Physician Assistant
DX: M54.16 Radiculopathy, lumbar region (principal)
CPT/HCPCS: 72148

== ENCOUNTER → 2024-06-01 10:03 | Outpatient (BNV) | payer MEDICARE, SELFPAY | PROVIDERS: Visit Provider Radiology Diagnostic Radiology | DX: M54.16 Radiculopathy, lumbar region (principal) | CPT/HCPCS: 72148 ==

== ENCOUNTER 2024-12-21 10:20 | Outpatient (REF) | payer MEDICARE, SELFPAY ==
--- OUTSIDE RECORDS SUMMARY | 2024-04-13 03:30 | XMS_ITS ---
Author Organization [facility] Address [address] [place] [address] [place] [id number] Care Team Providers Care Sheet Metal Helper Name Role Phone LESLEE SAWANT, CHUCKY Primary Care Provider Randy Michael Jr, Franco Balbuena REASON FOR VISIT hx polyps Encounters Encounter Location Date Provider Diagnosis [facility] Outpatient [address] [place] [id number] 04/13/2024 Franco Michael Jr Colon polyps K63.5 Assessments Encounter Date Diagnosis (ICD Code) Assessment Notes Treatment Notes Treatment Clinical Notes Section Notes 04/13/2024 Colon polyps (ICD-10 - K63.5) Plan Of Treatment Next Appt Details Provider Name:Franco renteria Jr, 09/19/2025 10:20:00 AM, [address] [place] [address], Suite [facility], [place], [id number], Progress Notes * ANA CHRISOB:1950 ( 74 yo F)Acc No.[id number]:04/13/2024 COLON WITH MAC Patient: CHRISTIANO JACOBO Provider: Ray Michael MD :1950 A ge:73 Y S ex:Female Date:04/13/2024 Address:[address] [place] [address] Pcp:CHUCKY CAMILO PA-C Subjective: * Chief Complaints: * 1 . Hx polyps. * Medical History: Objective: * Vitals: Assessment: * Assessment: 1. C olon polyps - K63.5 (Primary) Plan: * Treatment: * Procedure Codes: 4 5385 LESION REMOVAL COLONOSCOPY, 03221 COLONOSCOPE, SUBMUCOUS INJ, Modifiers: 59 , 0529F INTRVL 3+YRS PTS CLNSCP DOCD, Modifiers: 1P , 0528F RCMND FLW-UP 10 YRS DOCD, Modifiers: 1P * * The named appointment provid er may or may not be the originator of this progress note, and it is not deemed complete until electronically signed by the appointment provider. Sign off status: Pending * Provider: Ray Michael MD Date: 0 04/13/2024 Generated for Alex ervin/Dhruv/Josesmitting on: 1 12:10 PM EDT
--- OUTSIDE RECORDS SUMMARY | 2024-10-20 05:40 | XMS_ITS ---
Author Organization [facility] Address [address] [place] [phone] Care Team Providers Care Chemical Research Technician Name Role Phone LESLEE SAWANT, CHUCKY Primary Care Provider Unava jerry Michael Jr, Franco Balbuena REASON FOR VISIT pancreatic cyst Encounters Encounter Location Date Provider Diagnosis [facility] [address] [facility] [address] [facility] [address] [place] [id number] 10/20/2024 Franco Michael Jr Plan Of Treatment Next Appt Details Provider Name:Franco renteria Jr, 09/19/2025 10:20:00 AM, [address], [address], [place], [address], Progress Notes * ANA CHRISOB:1950 ( 74 yo F)Acc No.[id number]:10/20/2024 Progress Notes Patient: CHRISTIANO JACOBO Provider: Ray Michael MD :1950 A ge:74 Y S ex:Female Date:10/20/2024 Address:[address] [place], [place] [id number] Pcp:CHUCKY CAMILO PA-C Subjective: * Chief Complaints: * 1 . Pancreatic cyst. * Medical History: Objective: * Vitals: Assessment: Plan: * Treatment: * * The named appointment provid er may or may not be the originator of this progress note, and it is not deemed complete until electronically signed by the appointment provider. Sign off status: Pending * Provider: Ray Michael MD Date: 0 10/20/2024 Generated for Alex ervin/Dhruv/Neda on: 1 12:10 PM EDT
--- NOTE | ~2024-12-21 | MR_ITS ---
EXAMINATION: MR ABDOMEN WITHOUT THEN WITH IV CONTRAST HISTORY: PANCREATIC CYST COMPARISON: Comparison is made with the prior examination dated 12/26/2023. TECHNIQUE: Axial in and out of phase T1-weighted gradient echo, axial diffusion weighted, and axial and coronal HASTE T2 with fat saturation images were obtained through the abdomen. Subsequently, fat suppressed axial and coronal T1-weighted images were obtained after the intravenous administration of 4 mL Gadavist. FINDINGS: Liver: There is no loss of signal intensity in the liver on opposed phase imaging to suggest steatosis. Again seen is a tiny cyst in the right lobe at the dome. There is no enhancing liver mass. The hepatic and portal veins are patent. There is no intrahepatic biliary dilatation. Gallbladder/biliary tree: The patient is status post cholecystectomy. The common bile duct measures up to 13 mm in diameter, without significant change. No intraluminal filling defects are identified to suggest choledocholithiasis. Spleen: The spleen is unremarkable. Pancreas: Again seen is a 5 mm cyst in the pancreatic head. There may be a smaller cyst in the body. There is no associated contrast enhancement. There is no enhancing pancreatic mass. The pancreatic duct is normal in caliber. Adrenals: The adrenal glands are unremarkable. Kidneys: There are multiple subcentimeter bilateral renal cysts measuring up to 7 mm on the right and 8 mm on the left. There is no hydronephrosis. Lymph nodes: There is no retroperitoneal lymphadenopathy in the upper abdomen. Fluid: There is no ascites in the upper abdomen. Visualized bowel: The visualized small and large bowel loops are unremarkable in appearance. Visualized bones: The visualized bones demonstrate normal marrow signal intensity. There is grade I spondylolisthesis of L3 on L4 and L4 on L5. MR/MR abdomen wo/w con IMPRESSION: Stable subcentimeter pancreatic cysts. Continued follow-up is recommended. Electronically signed by: Elliott Bernal MD 12/21/2024 11:42 AM EDT
--- OUTSIDE RECORDS SUMMARY | 2024-12-21 12:09 | XMS_ITS | Encounter Summary ---
Author Organization [facility] Address [address] [place] [phone] Phone Care Team Providers Care Contracts Specialist Name Role Phone Donnie Boothe MD Primary Care Provider [phone] Encounter Details Date Type Department Care Team (Latest Contact Info) Description 07/04/2020 Transcribe Orders Virtual Department [address] [place] [address] José Martinez MD [address] [place] [address] Low back pain, unspecified back pain laterality, unspecified chronicity, unspecified whether sciatica present (Primary Dx) Social History Tobacco Use Types Packs/Day Years Used Date Smoking Tobacco: Never Smokeless Tobacco: Never Alcohol Use Standard Drinks/Week Comments Never 0 (1 standard drink = 0.6 oz pur e alcohol) Comments Unknown Sex and Gender Information Value Date Recorded Sex Assigned at Female 11/10/2019 1:41 PM EDT Legal Sex Female 1:28 PM EDT Gender Identity Female 11/10/2019 1:41 PM EDT Sexual Orientation Straight 11/10/2019 1: 41 PM EDT documented as of this encounter Plan of Treatment Upcoming Encounters Date Type Department Care Team (Late st Contact Info) Description 02/25/2025 3:20 PM EST Office Visit [facility] Internal Medicine [address] [place] [address] Leah Sanchez PA-C [address] [place], [place] [id number] [email or web address] documented as of this encounter Results * XR LUMBOSACRAL SPINE 4 OR MORE VIEWS (07/10/2020 12:14 PM EDT) Anatomical Region Laterality Modality L-spine Computed Radiogr aphy 07/10/2020 12:2 6 PM EDT Impressions 07/10/2020 12:28 PM EDT Multilevel bone and disc degenerative change as above without compression deformity seen. Narrative 07/10/2020 12:28 PM EDT Lumbar spine 5 views. No prior. No compression deformity or gross bony destructive lesions are identified. There is multilevel degenerative disc disease, most past L5-S1 where there is sclerosis, minor spurring, and vacuum phenomenon. L3-4 is the next most involved level. Moderate disc height loss at L4-5 without spurring or sclerosis. There is also facet arthropathy at multiple levels beginning at L3-4 and most prominent appearing at L4-5. It leads to anterolisthesis of several mm at L3-4. No spondylolysis or other levels with spondylolisthesis identified. Lower thoracic spurring noted. Right upper quadrant surgical clips and a left pelvic clip are noted in place. Bones appear moderately demineralized throughout. Procedure Note Prateek Kaba MD - 07/10/2020 Lumbar spine 5 views. No prior. No compression deformity or gross bonydestructive lesions are identified. There is multilevel degenerative discdisease, most past L5-S1 where there is sclerosis, minor spurring, andvacuum phenomenon. L3-4 is the next most involved level. Moderate discheight loss at L4-5 without spurring or sclerosis. There is also facetarthropathy at multiple levels beginning at L3-4 and most prominentappearing at L4-5. It leads to anterolisthesis of several mm at L3-4. Nospondylolysis or other levels with spondylolisthesis identified. Lowerthoracic spurring noted. Right upper quadrant surgical clips and a leftpelvic clip are noted in place. Bones appear moderately demineralizedthroughout. IMPRESSION: Multilevel bone and disc degenerative change as above without compressiondeformity seen. José Martinez MD IMG XR SPINE Final Re sult documented in this encounter Visit Diagnoses Diagnosis Low back pain, unspecified back pain laterality, unspecified chronicity, unspecified whether sciatica present- Primary Low back pain, unspecified back pain laterality, unspecified chronicity, unspecified whether sciatica present documented in this encounter Care Teams Contracts Specialist Relationship Specialty Start Date End Date Donnie Boothe MD [address] [place] [address] PCP - General Family Medicine 11/10/19 documented as of this encounter Additional Source Comments The information contained in this document represents components of the legal health record. It is not the complete legal health record.[facility]
--- OUTSIDE RECORDS SUMMARY | 2024-12-21 12:09 | XMS_ITS | Encounter Summary ---
Author Organization [facility] Address [address] [facility] [address] [place] [address] Phone Care Team Providers Care Manager Of Environmental Services Name Role Phone Donnie Boothe MD Primary Care Provider [phone] Encounter Details Date Type Department Care Team (Late st Contact Info) Description 08/14/2020 Ancillary Orders Virtual Department [address] [place] [address] José Martinez MD [address] [place] [address] Social History Tobacco Use Types Packs/Day Years [...] Description 02/25/2025 3:20 PM EST Office Visit [facility] [place] [facility] [address] [place] [address] Leah Sanchez PA-C [address] [place] [address] [email or web address] documented as of this encounter Visit Diagnoses Not on filedocumented in this encounter Care Teams Manager Of Environmental Services Relationship Specialty Start Date End Date Donnie Boothe MD [address] [place] [address] PCP - General Family Medicine 11/10/19 documented as of this encounter Additional Source Comments The information contained in this document represents components of the legal health record. It is not the complete legal health record.[facility]
--- OUTSIDE RECORDS SUMMARY | 2024-12-21 12:10 | XMS_ITS | Encounter Summary ---
Author Organization [facility] Address [address] [place] [address] Phone Care Team Providers Care Fiberglass Fabricator Name Role Phone Donnie Boothe MD Primary Care Provider [phone] Encounter Details Date Type Department Care Team (Late st Contact Info) Description 05/10/2022 Procedure Pass [facility], Ct Scan - [address] [id number] Social History Tobacco Use Types Packs/Day Years [...] Description 02/25/2025 3:20 PM EST Office Visit [facility] Internal Medicine [address] [place] [address] Leah Sanchez PA-C [address] [place] [address] [email or web address] documented as of this encounter Visit Diagnoses Not on filedocumented in this encounter Care Teams Fiberglass Fabricator Relationship Specialty Start Date End Date Donnie Boothe MD [address] [place] [address] PCP - General Family Medicine 11/10/19 documented as of this encounter Additional Source Comments The information contained in this document represents components of the legal health record. It is not the complete legal health record.[facility]
--- OUTSIDE RECORDS SUMMARY | 2024-12-21 12:10 | XMS_ITS ---
Author Name [facility] Organization Unknown History of Medication Use Medication Directions Dispensed Refills Start Date End Date Stat us meloxicam 15 mg tablet TAKE 1 TABLET BY MOUTH EVERY DAY active nortriptyline 50 mg capsule TAKE 1 CAPSULE BY MOUTH TWICE DAILY active potassium chloride ER 20 mEq tablet,extended release TAKE 1 TABLET BY MOUTH EVERY DAY active Praluent Pen 75 mg/mL subcutaneous pen injector INJECT 75MG SUBCUTANEOUSLY EVERY 14 DAYS active prednisolone sodium phosphate 5 mg base/5 mL (6.7 mg/5 mL) oral soln TAKE 5ML (1 TEASPOONFUL) BY MOUTH TWICE DAILY FOR 7 DAYS. GARGLE AND SWALLOW active sulfamethoxazole 800 mg-trimethoprim 160 mg tablet TAKE 1 TABLET BY MOUTH EVERY 12 HOURS WITH MEALS FOR 7 DAYS active topiramate 200 mg tablet TAKE 1 TABLET BY MOUTH THREE TIMES A DAY active Allergies Allergen Reaction Severity Comment Documented Date Source Statu s BETA-BLOCKERS (BETA-ADRENERGIC BLOCKING AGTS) E[facility] [place] E[facility] Problems Problem Status Onset Date Problem Type Date of Resoluti on Source Foreign body - finger active 2023-02-26 ProblemAct ENS_[facility]ONECT Encounters Encounter Type Encounter Reason Primary Diagnosis Location Date Ambulatory [facility] [place] 03/15/2023 Ambulatory [facility] [place] 02/26/2023 Ambulatory [facility] [place] 02/26/2023 Ambulatory [facility] [place] 02/26/2023 Ambulatory [facility] [place] 02/25/2023 Care Team Organization Name Specialty Phone Email Start Date End Da te [facility] [place] 202303/18/2023 [facility] [place] 202208/20/2024
--- OUTSIDE RECORDS SUMMARY | 2024-12-21 12:10 | XMS_ITS | Patient Health Record ---
Author Organization [facility] Address [address] [place] [phone] Care Team Providers Care Job Printer Name Role Phone CHUCKY CAMILO PA-C Primary Care Provider Franco Fernandez Jr Unavailable Allergies Allergen (clinical drug ingredient) Drug/Non Drug Allergy documented on EMR Reaction Allergy Type Onset Date Status Penicillin Unknown Drug Allergy Active Substance with beta adrenergic receptor antagonist mechanism of action (substance) beta blockers (uncoded) Unknown Allergy Active Results Component Value Reference Range Notes MR abdomen wo/w con Reviewed date:01/22/2024 08:48:51 AM Interpretation: Performing Lab: Notes/Report: [address] [address] Magnetic Resonance Report Signed Patient: Christiano Chris MR#: [id number] 7 : 1950 Acct:[id number] Age/Sex: 73 / F ADM Date: 12/26/23 Loc: HO.MRI Attending Dr: Franco Michael MD Ordering Physician: Franco Michael MD Date of Service: 12/26/23 Procedure(s): MR abdomen wo/w con Accession Number(s): [id number] cc: Franco Michael MD EXAMINATION: MR ABDOMEN WITHOUT AND WITH CONTRAST CLINICAL INFORMATION: Pancreatic cyst COMPARISON: MRI dated October 25, 2022. Correlated to CT dated July 07, 2023. TECHNIQUE: MR abdomen was performed without and with use of 4.0 mL intravenous Gadavist gadolinium contrast without reported immediate complications. Postcontrast images are performed in multiphase dynamic sequences. Imaging was performed in 3 planes. FINDINGS: Submitted for interpretation on January 21, 2024. LIVER, GALLBLADDER, AND BILIARY TREE: Liver measures 15 cm. There is a 1 cm nonenhancing fluid signal characteristic lesion in the dome right hepatic lobe. 1 mm nonenhancing fluid signal characteristic lesion, right hepatic lobe. Main portal vein and hepatic veins are patent. Status post cholecystectomy. Common bile duct measures 1.2 cm with a focal narrowing at the distal segment just medial to the second portion of the duodenum. PANCREAS: There is a cluster of 4 mm nonenhancing fluid signal characteristic lesions within the head of the pancreas. There is a 3 mm nonenhancing fluid signal characteristic lesion in the uncinate process. There is a 4 mm nonenhancing fluid signal characteristic lesion in the body of the pancreas adjacent to the main pancreatic duct. There is a 1 mm nonenhancing fluid signal structures lesions in the tail of the pancreas. The main pancreatic duct measures 3 mm in maximum diameter. No peripancreatic fluid collections. Splenic vessels are patent. SPLEEN: Measures 7 cm. No focal mass. ADRENAL GLANDS: 7 mm nodule, left adrenal gland, with the drop-off signal from in phase to out of phase sequence. No nodular lesions in the right adrenal gland. KIDNEYS AND URETERS: Multifocal different sizes scattered fluid signal characteristic nonenhancing lesions throughout the renal parenchyma, bilaterally. No gross renal mass. No hydronephrosis. GASTROINTESTINAL TRACT: Abundant stool. No intestinal obstruction pattern. No ascites. ABDOMINAL WALL: No gross hernia. LYMPH NODES: No lymphadenopathy. VASCULAR: No aneurysm or dissection, abdominal aorta. Tortuosity of the infrarenal abdominal aorta. OSSEOUS STRUCTURES: Multilevel spondylosis resulting in grade 1 anterolisthesis L3-4 causing central spinal canal stenosis compressing the neural elements. Spondylosis resulting in grade 1 anterolisthesis L4-5 and L5-S1 resulting in central spinal canal and bilateral neuroforamina stenosis. MR/MR abdomen wo/w con IMPRESSION: Nonspecific multiple nonenhancing pancreatic cysts. Focal stenosis distal common bile duct resulting in dilatation. Bilateral renal cysts. Hepatic cyst. Lipid rich adenoma, left adrenal gland. Multilevel spondylosis resulting in grade 1 anterolisthesis L3-4 and to a lesser extent L4-5 and L5-S1 resulting in central spinal canal stenosis. Electronically signed by: Chad Ledezma MD 01/21/2024 12:07 PM [facility] Dictated By: Chad Andino MD Signed By: <Electronically signed by Chad Milner MD in OV> 01/21/24 1207 DD/ 0950 TD/TT: 12/26/23 1020 Medical Laboratory Technicians: Pathology Reviewed date:04/15/2024 08:06:55 AM Interpretation: Performing Lab:[facility], [address] [place] [id number] Notes/Report: MR abdomen wo/w con (Not yet reviewed by provider) Interpretation: Performing Lab: Notes/Report: [facility] [address] [place] [address]. [place] [address] Magnetic Resonance Report Signed Patient: Christiano Chris MR#: [id number] 7 : 1950 Acct:[id number] Age/Sex: 74 / F ADM Date: 12/21/24 Loc: HO.MRI Attending Dr: Franco Michael MD Ordering Physician: Franco Michael MD Date of Service: 12/21/24 Procedure(s): MR abdomen wo/w con Accession Number(s): [id number] cc: Franco Michael MD; Physician,Unknown Reason for Exam: PANCREATIC CYST EXAMINATION: MR ABDOMEN WITHOUT THEN WITH IV CONTRAST HISTORY: PANCREATIC CYST COMPARISON: Comparison is made with the prior examination dated 12/26/2023. TECHNIQUE: Axial in and out of phase T1-weighted gradient echo, axial diffusion weighted, and axial and coronal HASTE T2 with fat saturation images were obtained through the abdomen. Subsequently, fat suppressed axial and coronal T1-weighted images were obtained after the intravenous administration of 4 mL Gadavist. FINDINGS: Liver: There is no loss of signal intensity in the liver on opposed phase imaging to suggest steatosis. Again seen is a tiny cyst in the right lobe at the dome. There is no enhancing liver mass. The hepatic and portal veins are patent. There is no intrahepatic biliary dilatation. Gallbladder/biliary tree: The patient is status post cholecystectomy. The common bile duct measures up to 13 mm in diameter, without significant change. No intraluminal filling defects are identified to suggest choledocholithiasis. Spleen: The spleen is unremarkable. Pancreas: Again seen is a 5 mm cyst in the pancreatic head. There may be a smaller cyst in the body. There is no associated contrast enhancement. There is no enhancing pancreatic mass. The pancreatic duct is normal in caliber. Adrenals: The adrenal glands are unremarkable. Kidneys: There are multiple subcentimeter bilateral renal cysts measuring up to 7 mm on the right and 8 mm on the left. There is no hydronephrosis. Lymph nodes: There is no retroperitoneal lymphadenopathy in the upper abdomen. Fluid: There is no ascites in the upper abdomen. Visualized bowel: The visualized small and large bowel loops are unremarkable in appearance. Visualized bones: The visualized bones demonstrate normal marrow signal intensity. There is grade I spondylolisthesis of L3 on L4 and L4 on L5. MR/MR abdomen wo/w con IMPRESSION: Stable subcentimeter pancreatic cysts. Continued follow-up is recommended. Electronically signed by: Elliott Bernal MD 12/21/2024 11:42 AM EDT Dictated By: Elliott Bernal MD Signed By: <Electronically signed by Elliott Bernal MD in OV> 12/21/24 1142 DD/ 1035 TD/TT: 12/21/24 1116 Medical Laboratory Technicians: Reason For Referral No Information Medications Medication SIG (Take, Route, Frequency, Duration) Notes Start Date End Date Status Nortriptyline HCl 50 MG Oral; Duration: 90 Active ZyrTEC Allergy 10 MG 2 tablet Orally Onc e a day Active NexIUM 40 MG 1 capsule Orally Onc e a day; Duration: 30 day(s) Active Melatonin Active Dulcolax 5 MG 1 tablet as needed Orally Once a day; Duration: 30 day(s) Active CoQ-10 Active Dicyclomine HCl 20 MG 1 tablet Orally Th ree times a day/prn; Duration: 30 days Active Dulcolax (colon prep) 5 MG take at 3:00 p.m and 7:00p.m. Orally two tablets twice a day for one day; Duration: 1 day 02/24/2024 Active Topiramate 200 MG Oral; Duration: 90 Active MiraLax (colon prep) 17 GM/SCOOP mixed with Gatorade or Crystal Light Orally begin at 5:00 p.m. the day before the procedure; Duration: 1 day 10/15/2023 Active Immunizations Vaccine Route Administration Date Status Comme nts Influenza Unknown 10/15/2023 Refused Influenza Unknown 09/16/2024 Refused Social History Tobacco Use: Social History Observation Description Date Details (start date - stop date) Never Smoker NA - NA Tobacco Use/Smoking Question Answer Notes Patient is a nonsmoker Alcohol Screen Question Answer Notes Did you have a drink contain ing alcohol in the past year? Yes How often did you have a dri nk containing alcohol in the past year? Never (0 point) How many drinks did you have on a typical day when you were drinking in the past year? 1 or 2 drinks (0 point) How often did you have 6 or more drinks on one occasion in the past year? Never (0 point) Points 0 Interpretation Negative Problems Problem Type SNOMED Code ICD Code Onset Dates Problem Status W/U Status Risk Notes Problem Constipation (65577186) Constipation (K59.00) Active confirmed Problem History of polyp of colon (situation) (430484289) Personal history of colonic polyps (Z86.010) Active confirmed Problem Generalized abdominal pain (739565193) Generalized abdominal pain (R10.84) Active confirmed Problem Abnormal feces (637629114) Other fecal abnormalities (R19.5) Active confirmed Problem Irritable bowel syndrome (87309978) IBS (irritable bowel syndrome) (K58.9) Active confirmed Problem Polyp of colon (disorder) (67882885) Colon polyps (K63.5) Active confirmed Problem Gastroesophageal reflux disease without esophagitis (129269502) Gastroesophageal reflux disease without esophagitis (K21.9) Active confirmed Problem Gastric polyp (06607985) Gastric polyp (K31.7) Active confirmed Problem Pancreatic cyst (95105382) Pancreatic cyst (K86.2) Active confirmed Problem Constipation (03301645) Constipation, unspecified constipation type (K59.00) Active confirmed Problem 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) Active confirmed Vital Signs Temperature 98.0 degrees Fahrenheit 09/16/2024 Blood pressure diastolic 01 mm Hg 09/16/2024 Height 58 in 09/16/2024 Blood pressure systolic 001 mm Hg 09/16/2024 Weight 81 lbs 09/16/2024 BMI 16.93 kg/m2 09/16/2024 Encounters Encounter Location Date Provider Diagnosis [facility] [address], [place] [id number] 04/13/2024 Franco Michael Jr Colon polyps K63.5 [facility] [address] [place] [phone] 09/16/2024 Franco Michael Jr Abnormality of pancreatic duct Q45.3 ; Pancreatic cyst K86.2 ; Colon polyps K63.5 and IBS (irritable bowel syndrome) K58.9 [facility] [address] [place] [phone] 01/14/2024 Franco Michael Jr [facility] [address] [place] [phone] 01/19/2024 Franco Michael Jr [facility] [address] [place] [phone] 01/19/2024 Franco Michael Jr [facility] [address] [place] [phone] 01/22/2024 Franco Michael Jr [facility] [address] [place] [phone] 02/24/2024 Franco Michael Jr [facility] [address] [place] [phone] 04/15/2024 Franco Michael Jr [facility] [address] [place] [phone] 09/24/2024 Franco Michael Jr Assessments Encounter Date Diagnosis (ICD Code) Assessment Notes Treatment Notes Treatment Clinical Notes Section Notes 04/13/2024 Colon polyps (ICD-10 - K63.5) 09/16/2024 Pancreatic cyst (ICD-10 - K86.2) We discussed her multiple GI issues today. She will continue her present regimen for her IBS. MRI of follow-up will be arranged. Laboratory studies will be arranged. Colonoscopy will be due in April. She understands risks and benefits and agrees to proceed. Today's visit was 30 minutes. 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 She will continue her present regimen for her IBS. MRI of follow-up will be arranged. Laboratory studies will be arranged. Colonoscopy will be due in April. She understands risks and benefits and agrees to proceed. Today's visit was 30 minutes. 09/16/2024 Colon polyps (ICD-10 - K63.5) We discussed her multiple GI issues today. She will continue her present regimen for her IBS. MRI of follow-up will be arranged. Laboratory studies will be arranged. Colonoscopy will be due in April. She understands risks and benefits and agrees to proceed. Today's visit was 30 minutes. 09/16/2024 IBS (irritable bowel syndrome) (ICD-10 - K58.9) We discussed her multiple GI issues today. She will continue her present regimen for her IBS. MRI of follow-up will be arranged. Laboratory studies will be arranged. Colonoscopy will be due in April. She understands risks and benefits and agrees to proceed. Today's visit was 30 minutes. Plan Of Treatment Pending Test Test Name Order Date BUN 09/16/2024 BUN 04/23/2023 CREATININE 04/23/2023 CREATININE 09/16/2024 LIVER PROFILE 09/16/2024 CBC w/o DIFF 09/16/2024 STOOL WBC 07/23/2023 GIARDIA AG, STOOL EIA 07/23/2023 OVA & PARASITES (O&P) 08/11/2023 OVA & PARASITES (O&P) 09/16/2023 OVA & PARASITES (O&P) 07/23/2023 CT ABD & PELVIS WITH CONTRAST 04/23/2023 MRI ABD W&WO CONTRAST 09/05/2022 MRI ABD W&WO CONTRAST 10/15/2023 MRI ABD W&WO CONTRAST 09/16/2024 MR abdomen wo/w con 12/21/2024 Future Test Test Name Order Date COLONOSCOPY 10/15/2023 COLONOSCOPY 09/16/2024 Next Appt Details Provider Name:Franco renteria Jr, 09/19/2025 10:20:00 AM, [address] [place] [address], [address], [place], [address], Insurance Providers Payer Name Payer Address Payer Phone Subscriber Number Group Number Insured Name Patient Relationship to Insured Coverage Start Date Coverage End Date [facility] [address] [facility] [place] [place] [id number] CHRISTIANO CHRIS Self - patient is the insured Medical (General) History Medical History History ICD Code reflex sympathetic dystrophy-complex reg ional pain syndrome left atrial enlargement/ first degree AV block heart murmur seasonal allergies Colon polyps, colonoscopy , tubular adenoma/tubulovillous adenoma, one year followup 05/03 Gastroesophageal reflux dise ase, EGD 10/30, fundic gland polyps, no BE/HP/celiac disease Surgical History Surgery Date(Month/Year) Squamous cell carcinoma/cryotherapy [id number] ERCP Hemorrhoidectomy Foot surgery Back surgery Sinus surgery Lumpectomy section x3
--- OUTSIDE RECORDS SUMMARY | 2024-12-21 12:10 | XMS_ITS | Clinical Summary ---
Author Organization [facility] Address [address] [address] Phone Care Team Providers Care Learning Disabilities Resource Teacher Name Role Phone Donnie Boothe MD Primary Care Provider [phone] Allergies Active Allergy Reactions Criticality Noted Date Comments Beta-Blockers (Beta-Adrenerg ic Blocking Agts) 12/09/2020 Penicillins 11/10/2019 Medications nortriptyline (PAMELOR) 50 MG capsule Take 100 mg by mouth nightly at bedtime. 12/10/2019 Active meloxicam (MOBIC) 15 MG tablet Take 15 mg by mouth daily. 12/10/2019 Active esomeprazole (NEXIUM) 40 MG capsule Take 40 mg by mouth nightly at bedtime. 12/10/2019 Active dicyclomine (BENTYL) 10 MG capsule Take 20 mg by mouth daily as needed (ABD PAIN). 12/10/2019 Active cetirizine (ZYRTEC) 10 MG tablet Take 10 mg by mouth daily. 12/10/2019 Active bisacodyl (DULCOLAX) 5 mg EC tablet Take 5 mg by mouth every morning. PT REPORTS TAKES 6 TABS DAILY 12/10/2019 Active MELATONIN ORAL Take 10 mg by mouth nightly at bedtime. 12/10/2019 Active topiramate (TOPAMAX) 200 MG tablet Take 200 mg by mouth daily. 12/10/2019 Active metoprolol tartrate (LOPRESSOR) 25 MG tablet Take 25 mg by mouth 2 (two) times a day. 12/10/2019 Active acetaminophen (TYLENOL) 325 mg Cap Take 650 mg by mouth every 6 (six) hours as needed (pain). 12/10/2019 Active fluticasone propionate (FLONASE) 50 mcg/actuation nasal spray 1 spray by Nasal route daily. Active coenzyme Q10 100 mg capsule Take 100 mg by mouth daily. Active Active Problems No known active problems Social History Tobacco Use Types Packs/Day Years Used Date Smoking Tobacco: Never Smokeless Tobacco: Never Alcohol Use Standard Drinks/Week Comments Never 0 (1 standard drink = 0.6 oz pur e alcohol) Education Answer Date Recorded Are you interested in more education? Not on louie e 07/05/2022 Are you concerned about learning? Not on file 07/05/2022 No 07/05/2022 No 07/05/2022 Digital Access Answer Date Recorded No 08/03/2022 No 08/03/2022 No 08/03/2022 Reliable internet access at home? Not on file 08/03/2022 Device with a working camera? Not on file Comments Unknown Sex and Gender Information Value Date Recorded Sex Assigned at Female 11/10/2019 1:41 PM EDT Legal Sex Female 1:28 PM EDT Gender Identity Female 11/10/2019 1:41 PM EDT Sexual Orientation Straight 11/10/2019 1: 41 PM EDT Last Filed Vital Signs Vital Sign Reading Time Taken Comments Blood Pressure 118/70 12/09/2020 10:54 AM EDT Pulse 97 12/09/2020 10:54 AM EDT Temperature 36.5 C (97.7 F) 12/09/2020 10:54 AM EDT Respiratory Rate 20 12/09/2020 10:54 AM EDT Oxygen Saturation 100% 12/09/2020 10:54 AM EDT Inhaled Oxygen Concentration - - Weight 39.5 kg (87 lb) 12/09/2020 10:54 AM EDT Height 146.1 cm (4' 9.5 ) 12/09/2020 10:54 AM ED T Body Mass Index 18.5 12/09/2020 10:54 AM EDT Plan of Treatment Upcoming Encounters Date Type Department Care Team (Late st Contact Info) Description 02/25/2025 3:20 PM EST Office Visit [facility] Internal Medicine [address] [facility] [place] [address] Leah Sanchez PA-C [address] [place] [address] [email or web address] Health Maintenance Due Date Last Done Comments Adult Td,Tdap Booster 1950 LIPID PANEL 1950 DEPRESSION SCREENING 1960 HEPATITIS C SCREENING 1966 PNEUMOCOCCAL VACCINES (50+ years) (1 of 1 - PCV) 1998 ZOSTER VACCINES (1 of 2) 1998 OSTEOPOROSIS SCREENING INITI AL (ONE-TIME) 2013 RSV VACCINE (1 - 1-dose 75+ series) 06/28/2023 INFLUENZA VACCINE (#1) 2024 COVID-19 VACCINE (3 - 2024-2 6 season) 2024 05/20/2020, 05/02/2020 SMOKING STATUS SCREENING (On ce After 26 Yrs) Completed 12/09/2020 HEPATITIS A VACCINES Aged Out No long er eligible based on patient's age to complete this topic HIB VACCINES Aged Out No longer eligi ble based on patient's age to complete this topic MENINGOCOCCAL VACCINES (ACWY) Aged Out No longer eligible based on patient's age to complete this topic MENINGOCOCCAL VACCINES (B) Aged Out N o longer eligible based on patient's age to complete this topic Medical Devices Not on file [place] [id number] [employer] P[employer] MEDICARE REPLACEMENT MEDICARE PART A & B [facility] MEDICARE PART A & B Member Subscriber Plan / Payer (Ef fective 2022-) Name:José Magallon Member ID:[id number] Relation to Subscriber:Self Name:José Magallon Subscriber ID:[id number] Payer ID:[id number] Group ID:Not on file Type:Medicare Address: [employer]. [address] [place] [address] [facility] MEDICARE REPLACEMENT MEDICARE PART A & B [facility] MEDICARE REPLACEMENT MEDICARE PART A & B MEDICARE REPLACEMENT MEDICARE PART A & B MEDICARE REPLACEMENT Care Teams Learning Disabilities Resource Teacher Relationship Specialty Start Date End Date Donnie Boothe MD [address] [place] [address] PCP - General Family Medicine 11/10/19 Additional Source Comments The information contained in this document represents components of the legal health record. It is not the complete legal health record.[facility]
--- OUTSIDE RECORDS SUMMARY | 2024-12-21 12:10 | XMS_ITS | Encounter Summary ---
Author Organization [facility] Address [address] [place] [address] [place] [address] Phone Care Team Providers Care Auto Parts Clerk Name Role Phone Donnie Boothe MD Primary Care Provider [phone] Reason for Referral * MRI/CAT Scan - Closed Specialty Diagnoses / Procedures Referred By Contac t Referred To Contact Radiology Diagnoses Disc degeneration, lumbar Procedures MRI Lumbar Spine CHG MRI, LUMBAR SPINE José Martinez MD Phone: tel: Referral ID Status Reason Start Date Expiration Date Visits Re quested Visits Authorized [id number] Closed 08/14/2020 08/14/2021 1 1 Encounter Details Date Type Department Care Team (Late st Contact Info) Description 08/14/2020 Ancillary Orders Virtual Department [address] [place] [address] José Martinez MD [address] [place] [address] Disc degeneration, lumbar Social History Tobacco Use Types Packs/Day Years [...] EST Office Visit [facility] [address] [place] [address] Leah Sanchez PA-C [address] [place] [address] [email or web address] documented as of this encounter Results * MRI LUMBAR SPINE (NEURO) WITHOUT CONTRAST (08/26/2020 9:54 AM EDT) Anatomical Region Laterality Modality L-spine Magnetic Resonan ce 08/26/2020 12:5 6 PM EDT Impressions 08/26/2020 1:01 PM EDT Severe central canal stenosis at L3-4 with advanced stenosis at L4-5 but somewhat less than that seen at L3-4. Foraminal narrowing at multiple levels, most pronounced on the left at L5-S1. Narrative 08/26/2020 1:01 PM EDT HISTORY: Complex regional pain syndrome. Low back pain and left radiculopathy. Remote history of surgery. COMPARISON: Radiographs July 10. TECHNIQUE: Exam performed on a 1.5 Eryn high-field MRI scanner. Sagittal T1, T2 and STIR, axial T1 and T2 sequences were obtained. FINDINGS: On sagittal sequences from T11-12 through L1-2 no finding of concern is identified. L2-3: No disc at analysis concern. No canal or foraminal stenosis. L3-4: Advanced facet arthropathy leading to anterolisthesis of L3 on L4 and uncovering of the disc space. There is some prominence of ligamenta flava. In combination there is high-grade spinal stenosis with marked compression of nerve roots and redundancy of nerve roots above this level indicating traction changes. Moderate foraminal narrowing bilaterally. L4-5: Somewhat lesser facet degenerative change but there are bilateral joint effusions. There is degenerative disc disease with broad-based disc ridge complex. There is some trace anterolisthesis. There is right greater than left foraminal narrowing. There is central canal stenosis of a high degree but with less mass effect than seen L3-4. L5-S1: Degenerative disc disease with disc ridge complex. Some facet degenerative change, slightly more prominent on left than right. This extensive bilateral foraminal impingement minimally worse on left than right. There does not appear to be significant central canal stenosis. Visualized lower thoracic cord demonstrates no cord signal finding of concern. Conus present at L1. No worrisome marrow signal changes are detected. Studies not tailored for evaluation of regional soft tissues but no soft tissue findings of clear concern are identified within the [id number]. There is suggestion of some focal renal cortical volume loss on the left and findings most consistent with small right renal cyst. Procedure Note Prateek Kaba MD - 08/26/2020 HISTORY: Complex regional pain syndrome. Low back pain and leftradiculopathy. Remote history of surgery. COMPARISON: Radiographs July 10. TECHNIQUE: Exam performed on a 1.5 Eryn high-field MRI scanner. SagittalT1, T2 and STIR, axial T1 and T2 sequences were obtained. FINDINGS: On sagittal sequences from T11-12 through L1-2 no finding of concern isidentified. L2-3: No disc at analysis concern. No canal or foraminal stenosis. L3-4: Advanced facet arthropathy leading to anterolisthesis of L3 on L4and uncovering of the disc space. There is some prominence of ligamentaflava. In combination there is high-grade spinal stenosis with markedcompression of nerve roots and redundancy of nerve roots above this levelindicating traction changes. Moderate foraminal narrowing bilaterally. L4-5: Somewhat lesser facet degenerative change but there are bilateraljoint effusions. There is degenerative disc disease with broad-based discridge complex. There is some trace anterolisthesis. There is right greaterthan left foraminal narrowing. There is central canal stenosis of a highdegree but with less mass effect than seen L3-4. L5-S1: Degenerative disc disease with disc ridge complex. Some facetdegenerative change, slightly more prominent on left than right. Thisextensive bilateral foraminal impingement minimally worse on left thanright. There does not appear to be significant central canal stenosis. Visualized lower thoracic cord demonstrates no cord signal finding ofconcern. Conus present at L1. No worrisome marrow signal changes are detected. Studies not tailored for evaluation of regional soft tissues but no softtissue findings of clear concern are identified within the [id number].There is suggestion of some focal renal cortical volume loss on the leftand findings most consistent with small right renal cyst. IMPRESSION: Severe central canal stenosis at L3-4 with advanced stenosis at L4-5 butsomewhat less than that seen at L3-4. Foraminal narrowing at multiplelevels, most pronounced on the left at L5-S1. José Martinez MD IMG MR XSPECIALTY Final Result documented in this encounter Visit Diagnoses Diagnosis Disc degeneration, lumbar Degeneration of lumbar or lumbosacral intervertebral disc Disc degeneration, lumbar Degeneration of lumbar or lumbosacral intervertebral disc documented in this encounter Care Teams Auto Parts Clerk Relationship Specialty Start Date End Date Donnie Boothe MD [address] [place] [address] PCP - General Family Medicine 11/10/19 documented as of this encounter Additional Source Comments The information contained in this document represents components of the legal health record. It is not the complete legal health record.[facility]
--- OUTSIDE RECORDS SUMMARY | 2024-12-21 12:10 | XMS_ITS | Encounter Summary ---
Author Organization [facility] Address [address] [place] [phone] Phone Care Team Providers Care Turf Keeper Name Role Phone Donnie Boothe MD Primary Care Provider [phone] Encounter Details Date Type Department Care Team (Late st Contact Info) Description 08/14/2020 Procedure Pass [facility], [address] [address] Social History Tobacco Use Types Packs/Day Years [...] Description 02/25/2025 3:20 PM EST Office Visit [facility] Internal Medicine [address] [place] [address] Leah Sanchez PA-C [address] [place] [address] [email or web address] documented as of this encounter Visit Diagnoses Not on filedocumented in this encounter Care Teams Turf Keeper Relationship Specialty Start Date End Date Donnie Boothe MD [address] [place] [address] PCP - General Family Medicine 11/10/19 documented as of this encounter Additional Source Comments The information contained in this document represents components of the legal health record. It is not the complete legal health record.[facility]
--- OUTSIDE RECORDS SUMMARY | 2024-12-21 12:11 | XMS_ITS | Encounter Summary ---
Author Organization [facility] Address [address] [place] [address] Phone Care Team Providers Care Negative Checker Name Role Phone Donnie Boothe MD Primary Care Provider [phone] Reason for Referral * MRI/CAT Scan - Closed Specialty Diagnoses / Procedures Referred By Contac t Referred To Contact Radiology Diagnoses Abdominal pain, unspecified abdominal location Procedures CT Abdomen/Pelvis CHG CT SCAN,ABDOMENT AND PELVIS,W CONTRAST Amber Houston MD [address] [place] [phone] Phone: tel: fax: [email or web address] Referral ID Status Reason Start Date Expiration Date Visits Re quested Visits Authorized [id number] Closed 05/09/2022 11/05/2022 1 1 Encounter Details Date Type Department Care Team (Late st Contact Info) Description 05/10/2022 Transcribe Orders Virtual Department [address] [place] [address] Amber Houston MD [address] [place] [phone] [email or web address] Abdominal pain, unspecified abdominal location (Primary Dx) Social History Tobacco Use Types [...] Description 02/25/2025 3:20 PM EST Office Visit [facility] [address] [place] [address] Leah Sanchez PA-C [address] [place] [address] [email or web address] documented as of this encounter Results * CT ABDOMEN/PELVIS WITH CONTRAST (05/29/2022 4:08 PM EDT) Anatomical Region Laterality Modality Abdomen, Pelvis Computed Tomogra phy 05/30/2022 10:0 9 AM EDT Impressions 05/30/2022 10:27 AM EDT 1. 6 mm low-density lesion at the pancreatic head and a 3 mm low-density lesion at the pancreatic body/tail junction. Findings may represent small cysts. MRCP recommended for further evaluation. 2. Mild prominence of the extrahepatic common bile duct which may be on the basis of prior cholecystectomy. Correlation with LFTs recommended. This too may be further evaluated at time of MRCP. 3. 4 mm right middle lobe pulmonary nodule. As per Fleischner Society 2017 guidelines, no specific imaging followup is recommended in the absence of systemic malignancy, significant smoking history or risk factors for lung cancer. If the patient is considered high risk for lung malignancy, follow-up CT chest in 12 months may be considered. Narrative 05/30/2022 10:[address] ABDOMEN/PELVIS WITH CONTRAST History: Abdominal pain TECHNIQUE: Multidetector-row CT of the abdomen and pelvis was performed after administration of intravenous contrast using tailored dose modulation techniques. Images were reconstructed in the axial, coronal, and sagittal planes. COMPARISON: There is no prior study available for comparison FINDINGS: Lower Chest: There is a 4 mm nodule at the right middle lobe (3:18). No consolidation or pleural effusions. Liver: Normal attenuation. There is a 0.8 cm cyst at the hepatic dome Biliary: The gallbladder is surgically absent with multiple clips at the gallbladder fossa. There is prominence of the extrahepatic common bile duct measuring up to 4.1 cm which may be on the basis of prior cholecystectomy. No intrahepatic biliary ductal dilatation. Spleen: No splenomegaly or focal lesions. Pancreas: The pancreatic duct is at the upper limit of normal in size measuring 3 mm. There is a 6 mm low-density lesion at the pancreatic head and a 3 mm low-density lesion at the pancreatic body/tail junction. Adrenal Glands: Mild thickening of the left adrenal gland without discrete nodule demonstrated. Kidneys/Ureters: Scattered subcentimeter hypodense lesions within the kidneys bilaterally, too small to characterize. No solid masses, stones, or hydronephrosis. Bowel: A moderate volume of stool is demonstrated throughout the colon. The colon is partially decompressed, limiting evaluation. No distention or definite wall thickening. Peritoneum/Retroperitoneum: No masses, pneumoperitoneum, or fluid. Lymph Nodes: No lymphadenopathy. Pelvic Organs/Bladder: The urinary bladder is physiologically distended. No mural thickening. Vessels: No abdominal aortic aneurysm. Bones/Soft Tissues: Grade 1 anterolisthesis of L3 over L4. Multilevel degenerative changes of the spine. No destructive osseous lesions. Procedure Note Marylou Hernandez MD - 05/30/2022 CT ABDOMEN/PELVIS WITH CONTRAST History: Abdominal pain TECHNIQUE: Multidetector-row CT of the abdomen and pelvis was performedafter administration of intravenous contrast using tailored dosemodulation techniques. Images were reconstructed in the axial, coronal,and sagittal planes. COMPARISON: There is no prior study available for comparison FINDINGS: Lower Chest: There is a 4 mm nodule at the right middle lobe (3:18). Noconsolidation or pleural effusions. Liver: Normal attenuation. There is a 0.8 cm cyst at the hepatic dome Biliary: The gallbladder is surgically absent with multiple clips at thegallbladder fossa. There is prominence of the extrahepatic common bileduct measuring up to 4.1 cm which may be on the basis of priorcholecystectomy. No intrahepatic biliary ductal dilatation. Spleen: No splenomegaly or focal lesions. Pancreas: The pancreatic duct is at the upper limit of normal in sizemeasuring 3 mm. There is a 6 mm low-density lesion at the pancreatic headand a 3 mm low-density lesion at the pancreatic body/tail junction. Adrenal Glands: Mild thickening of the left adrenal gland without discretenodule demonstrated. Kidneys/Ureters: Scattered subcentimeter hypodense lesions within thekidneys bilaterally, too small to characterize. No solid masses, stones,or hydronephrosis. Bowel: A moderate volume of stool is demonstrated throughout the colon.The colon is partially decompressed, limiting evaluation. No distention ordefinite wall thickening. Peritoneum/Retroperitoneum: No masses, pneumoperitoneum, or fluid. Lymph Nodes: No lymphadenopathy. Pelvic Organs/Bladder: The urinary bladder is physiologically distended.No mural thickening. Vessels: No abdominal aortic aneurysm. Bones/Soft Tissues: Grade 1 anterolisthesis of L3 over L4. Multileveldegenerative changes of the spine. No destructive osseous lesions. IMPRESSION: 1. 6 mm low-density lesion at the pancreatic head and a 3 mm low-densitylesion at the pancreatic body/tail junction. Findings may represent smallcysts. MRCP recommended for further evaluation. 2. Mild prominence of the extrahepatic common bile duct which may be onthe basis of prior cholecystectomy. Correlation with LFTs recommended.This too may be further evaluated at time of MRCP. 3. 4 mm right middle lobe pulmonary nodule. As per Fleischner [id number] guidelines, no specific imaging followup is recommended in theabsence of systemic malignancy, significant smoking history or riskfactors for lung cancer. If the patient is considered high risk for lungmalignancy, follow-up CT chest in 12 months may be considered. Amber Houston MD IMG CT ABD/PELVIS Final Res ult documented in this encounter Visit Diagnoses Diagnosis Abdominal pain, unspecified abdominal location- Primary Abdominal pain, unspecified abdominal location documented in this encounter Care Teams Negative Checker Relationship Specialty Start Date End Date Donnie Boothe MD [address] [place] [address] PCP - General Family Medicine 11/10/19 documented as of this encounter Additional Source Comments The information contained in this document represents components of the legal health record. It is not the complete legal health record.[facility]
== END 2024-12-21 10:21 | disposition home or self-care (01) ==
LOC: HO.MRI 10:20
PROVIDERS: Visit Provider Internal Medicine Gastroenterology
DX: Q45.3 Other congenital malformations of pancreas and pancreatic duct (principal); K63.5 Polyp of colon
CPT/HCPCS: 74183; A9585

== ENCOUNTER → 2024-12-21 10:35 | Outpatient (BNV) | payer MEDICARE, SELFPAY | PROVIDERS: Visit Provider Radiology Diagnostic Radiology | DX: K86.2 Cyst of pancreas (principal) | CPT/HCPCS: 74183 ==